=== PATIENT | male | born 1950 | race Caucasian/White ===

== ENCOUNTER → 2018-05-18 | Outpatient (CLI) | payer OTHER ==
[~2018-05-18] MED LIST: ACET1TAB12 PO; ASPI-1197 PO; AZAT50TA PO; BALS750C2 PO; METO25 PO; OLME40TA8 PO; PANT40TA25 PO; REGADENOSON 0.4 MG/5 ML PF SYG IVP SCH; SIMV40TA59 PO; TAMS-1 PO
== END | disposition home or self-care (01) ==
LOC: SHCH 08:37
PROVIDERS: ATTEND Internal Medicine Cardiovascular Disease
DX: I25.10 Atherosclerotic heart disease of native coronary artery without angina pectoris (principal)
CPT/HCPCS: 78452; 93017; 96374; A9500 ×2; J2785

== ENCOUNTER → 2018-05-24 | Outpatient (CLI) | payer OTHER ==
[~2018-05-24] MED LIST changes: -REGADENOSON 0.4 MG/5 ML PF SYG IVP SCH
== END | disposition home or self-care (01) ==
LOC: SHCH 11:26
PROVIDERS: ATTEND Internal Medicine Cardiovascular Disease
DX: R07.9 Chest pain, unspecified (principal)
CPT/HCPCS: 93306

== ENCOUNTER → 2018-07-13 | Outpatient (CLI) | payer OTHER | END | disposition home or self-care (01) | LOC: OIH 11:24 | PROVIDERS: ATTEND Family Medicine | DX: M17.11 Unilateral primary osteoarthritis, right knee (principal) | CPT/HCPCS: 73560 ==

== ENCOUNTER → 2018-10-26 | Outpatient (CLI) | payer OTHER | END | disposition home or self-care (01) | LOC: SHCH 09:45 | PROVIDERS: ATTEND Internal Medicine Cardiovascular Disease | DX: R09.89 Other specified symptoms and signs involving the circulatory and respiratory systems (principal) | CPT/HCPCS: 93880 ==

== ENCOUNTER → 2020-06-15 | Outpatient (CLI) | payer OTHER ==
[~2020-06-15] MED LIST changes: -PANT40TA25 PO; +PANT40TA54 PO
== END | disposition home or self-care (01) ==
LOC: SHCH 09:30
PROVIDERS: ATTEND Internal Medicine Cardiovascular Disease
DX: I25.5 Ischemic cardiomyopathy (principal); I10 Essential (primary) hypertension
CPT/HCPCS: 93306; 93356

== ENCOUNTER → 2020-06-20 | Outpatient (CLI) | payer OTHER | END | disposition home or self-care (01) | LOC: SHCH 10:00 | PROVIDERS: ATTEND Internal Medicine Cardiovascular Disease | DX: I65.23 Occlusion and stenosis of bilateral carotid arteries (principal) | CPT/HCPCS: 93880 ==

== ENCOUNTER → 2020-11-13 | Outpatient (CLI) | payer OTHER | END | disposition home or self-care (01) | LOC: RAH 10:45 | PROVIDERS: ATTEND Family Medicine | DX: M16.12 Unilateral primary osteoarthritis, left hip (principal); M85.88 Other specified disorders of bone density and structure, other site | CPT/HCPCS: 73502 ==

== ENCOUNTER 2021-08-12 06:49 | Observation (INO) | payer OTHER ==
[2021-08-08 10:30] LABS: BASOPHILS % (AUTO) 0.3 % (0.0-5.0); EOSINOPHILS % (AUTO) 0.9 % (0.0-8.0); HEMATOCRIT 39.8 % (42-54); LYMPHOCYTES % (AUTO) 14.8 % (21.0-51.0); MEAN CORPUSCULAR HEMOGLOBIN 31.9 pg (27.0-33.0); MEAN CORPUSCULAR HGB CONC 32.7 g/dL (32.0-36.0); MEAN CORPUSCULAR VOLUME 97.8 fL (79-99); MONOCYTES % (AUTO) 14.1 % (3.0-13.0); NEUTROPHILS % (AUTO) 69.6 % (40.0-77.0); PLATELET COUNT (AUTO) 263 K/uL (130-400); RED BLOOD CELL COUNT(AUTO) 4.07 MIL/uL (4.50-6.20); RED CELL DISTRIBUTION WIDTH 11.8 % (11.0-15.5); WHITE BLOOD COUNT (AUTO) 5.7 K/uL (4.8-10.8)
[2021-08-08 10:33] LABS: APPEARANCE,URINE Clear (CLEAR); BILIRUBIN,URINE Negative (NEGATIVE); COLOR,URINE Yellow (YELLOW); GLUCOSE, URINE (UA) Negative (NEGATIVE); KETONES,URINE Negative (NEGATIVE); LEUKOCYTE ESTERASE ,URINE Negative (NEGATIVE); NITRATE,URINE Negative (NEGATIVE); OCCULT BLOOD,URINE Negative (NEGATIVE); PROTEIN,URINE Negative (NEGATIVE); UROBILINOGEN,URINE 0.2 mg/dL (0.2-1.0)
[2021-08-08 10:37] LABS: CREATININE 1.2 mg/dL (0.5-1.5); POTASSIUM 4.5 mmol/L (3.5-5.1)
[2021-08-08 10:57] VITALS: BP 148/83
[2021-08-08 11:06] LABS: INR 0.96 (0.85-1.15); PROTHROMBIN TIME 10.5 SEC (9.6-11.6)
[~2021-08-12] VITALS: Ht 170.2 cm; Wt 79.7 kg
[2021-08-12] VITALS (29 sets, daily range): BP systolic 80–136; BP diastolic 30–71
[~2021-08-12 06:49] MED LIST changes: -ACET1TAB12 PO; +AEC81 PO; -ASPI-1197 PO; +ATOR40TA71 PO; -AZAT50TA PO; +AZAT50TA17 PO; -BALS750C2 PO; +HYDR-4064 PO; +LISI20TA24 PO; -METO25 PO; -OLME40TA8 PO; -SIMV40TA59 PO; +[UNRECOGNIZED DRUG - CODE] PO
[2021-08-12] MEDS: CEFAZOLIN SODIUM 1 GM VIAL IVP SCH ×3 (08:00→21:01)
[2021-08-12] MEDS ORDERED: LACTATED RINGERS 1000ML 1,000 ML IV ONE (08:07)
[2021-08-12] MEDS ORDERED: PROPOFOL 10 MG/ML 20ML VIAL IV ONE (09:14)
[2021-08-12] MEDS ORDERED: SUCCINYLCHOLINE 200MG/10ML SYR ONE (09:14)
[2021-08-12] MEDS ORDERED: LIDOCAINE PF 100MG/5ML (2%) SYRINGE 5ML ONE ×2 (09:14→13:48)
[2021-08-12] MEDS ORDERED: FENTANYL CITRATE PF 50 MCG/1 ML 2ML VIAL ONE (09:15)
[2021-08-12] MEDS ORDERED: ROCURONIUM 10MG/1ML SYR 10 MG/ML ML ONE ×2 (09:15→11:37)
[2021-08-12] MEDS ORDERED: ROPIVACAINE 0.5% 5MG/ML 30ML IJ ONE (09:43)
[2021-08-12] MEDS ORDERED: MIDAZOLAM HCL 1 MG/ML 2ML VIAL ONE ×2 (10:22→16:19)
[2021-08-12] MEDS ORDERED: MEPERIDINE-PF 25 MG/ML SYG ONE ×3 (10:24→14:32)
[2021-08-12] MEDS ORDERED: TRANEXAMIC ACID 1000MG/10ML ONE ×2 (10:25→14:17)
[2021-08-12] MEDS ORDERED: CEFAZOLIN SODIUM 1 GM VIAL ONE (10:25)
[2021-08-12] MEDS ORDERED: EPHEDRINE SULFATE 50 MG/ML AMPULE ONE ×2 (10:35→14:54)
[2021-08-12] MEDS ORDERED: PHENYLEPHRINE HCL 10 MG/ML 1ML VIAL IV ONE ×3 (11:28→12:54)
[2021-08-12] MEDS ORDERED: 0.9%NACL 10ML VIAL ONE (11:28)
[2021-08-12] MEDS ORDERED: CEFAZOLIN SODIUM 1 GM VIAL IRRIG ONE (11:33)
[2021-08-12] MEDS ORDERED: GLYCOPYRROLATE 1 MG/5 ML SYRINGE ONE (12:42)
[2021-08-12] MEDS ORDERED: NEOSTIGMINE 5MG/5ML SYR IV ONE (13:28)
[2021-08-12] MEDS ORDERED: DiphenhydrAMINE HCL 50 MG/ML VIAL IVP PRN (13:30)
[2021-08-12] MEDS ORDERED: FERROUS FUMARATE 324 MG TABLET PO PRN (13:30)
[2021-08-12] MEDS ORDERED: POTASSIUM CHLORIDE 10% ELIXIR 20 MEQ/15 ML UDCUP PO PRN (13:30)
[2021-08-12] MEDS: ACETAMINOPHEN 500 MG TABLET PO SCH ×2 (13:30→21:06)
[2021-08-12] MEDS ORDERED: TEMAZEPAM 15 MG CAPSULE PO PRN (13:30)
[2021-08-12] MEDS ORDERED: OXYCODONE HCL 5 MG TAB PO PRN (13:30)
[2021-08-12] MEDS ORDERED: KCL 20 MEQ ERTAB PO PRN (13:30)
[2021-08-12] MEDS ORDERED: ONDANSETRON 4MG INJ IVP PRN (13:30)
[2021-08-12] MEDS ORDERED: POTASSIUM CHLORIDE 20MEQ/100ML 100 ML IV PRN (13:30)
[2021-08-12] MEDS ORDERED: TRAMADOL HCL 50 MG TABLET PO PRN (13:30)
[2021-08-12] MEDS ORDERED: LIDOCAINE HCL-MPF 1% 2ML VIAL IV PRN (13:30)
[2021-08-12] MEDS ORDERED: CALCIUM CARB 500MG PO PRN (13:30)
[2021-08-12] MEDS: FENTANYL CITRATE PF 50 MCG/1 ML 2ML VIAL ONE ×2 (15:20→15:22)
[2021-08-12] MEDS: 0.9%NACL 1000ML 1,000 ML IV SCH ×2 (17:03→23:30)
[2021-08-12] MEDS ORDERED: HYDROMORPHONE PCA 10 MG/50 ML 50 ML IV PRN (17:30)
[2021-08-12] MEDS ORDERED: CEFAZOLIN SODIUM 1 GM VIAL IVP SCH ×2 (18:30→20:30)
[2021-08-12] MEDS: BALSALAZIDE DISODIUM 750 MG PO SCH (21:00)
[2021-08-12] MEDS: KETOROLAC 15MG/ML VIAL (15MG/ML) IV PRN (21:01)
[2021-08-12] MEDS: ATORVASTATIN 40 MG TABLET PO SCH (21:02)
[2021-08-12] MEDS: CELECOXIB 200 MG CAP PO SCH (21:02)
[2021-08-12] MEDS: TAMSULOSIN HCL 0.4 MG CAP.ER.24H PO SCH (21:02)
[2021-08-12] MEDS: PREGABALIN 25 MG CAP PO SCH (21:02)
[2021-08-12] MEDS: AZATHIOPRINE 50 MG TAB PO SCH (21:02)
[2021-08-12] MEDS: ASPIRIN 81 MG EC TAB PO SCH (21:02)
[2021-08-12] MEDS: OXYCODONE HCL 5 MG TAB PO PRN (22:52)
[2021-08-13] VITALS: BP 103/63
[2021-08-13 04:00] VITALS: BP 118/66
[2021-08-13 04:03] LABS: HEMATOCRIT 26.9 % (42-54); MEAN CORPUSCULAR HEMOGLOBIN 31.8 pg (27.0-33.0); MEAN CORPUSCULAR HGB CONC 33.5 g/dL (32.0-36.0); MEAN CORPUSCULAR VOLUME 95.1 fL (79-99); RED BLOOD CELL COUNT(AUTO) 2.83 MIL/uL (4.50-6.20); RED CELL DISTRIBUTION WIDTH 11.9 % (11.0-15.5); WHITE BLOOD COUNT (AUTO) 7.3 K/uL (4.8-10.8)
[2021-08-13 04:12] LABS: CREATININE 1.1 mg/dL (0.5-1.5); POTASSIUM 4.1 mmol/L (3.5-5.1)
[2021-08-13] MEDS ORDERED: CEFAZOLIN SODIUM 1 GM VIAL ONE (04:54)
[2021-08-13] MEDS: CEFAZOLIN SODIUM 1 GM VIAL IVP SCH (05:00)
[2021-08-13] MEDS: OXYCODONE HCL 5 MG TAB PO PRN ×2 (05:05→21:11)
[2021-08-13] MEDS: ACETAMINOPHEN 500 MG TABLET PO SCH ×3 (05:07→21:10)
[2021-08-13] MEDS ORDERED: MAGNESIUM CITRATE 296 ML SOLUTION PO SCH (06:30)
[2021-08-13] MEDS ORDERED: MAG/ALUM/SIMETH 30 ML UDCUP PO PRN (06:30)
[2021-08-13 07:10] VITALS: BP 145/80
[2021-08-13] MEDS: CELECOXIB 200 MG CAP PO SCH ×2 (08:52→21:08)
[2021-08-13] MEDS: PANTOPRAZOLE 40 MG TAB DR PO SCH (08:52)
[2021-08-13] MEDS: AZATHIOPRINE 50 MG TAB PO SCH ×2 (08:52→21:08)
[2021-08-13] MEDS: POLYETHYLENE GLYCOL 3350 17 GM POWD.PACK PO SCH (08:52)
[2021-08-13] MEDS: LISINOPRIL 20 MG TABLET PO SCH (08:53)
[2021-08-13] MEDS: ASPIRIN 81 MG EC TAB PO SCH ×3 (08:53→21:09)
[2021-08-13] MEDS: PREGABALIN 25 MG CAP PO SCH ×2 (08:53→21:08)
[2021-08-13] MEDS ORDERED: TAMSULOSIN HCL 0.4 MG CAP.ER.24H PO SCH (09:00)
[2021-08-13] MEDS: BALSALAZIDE DISODIUM 750 MG PO SCH ×3 (09:00→21:00)
[2021-08-13] MEDS: KETOROLAC 15MG/ML VIAL (15MG/ML) IV PRN (09:18)
[2021-08-13] MEDS: 0.9%NACL 1000ML 1,000 ML IV SCH (09:30)
[2021-08-13 11:15] VITALS: BP 107/69
[2021-08-13 15:05] VITALS: BP 124/72
[2021-08-13 20:05] VITALS: BP 128/64
[2021-08-13] MEDS: ATORVASTATIN 40 MG TABLET PO SCH (21:08)
[2021-08-13] MEDS: TAMSULOSIN HCL 0.4 MG CAP.ER.24H PO SCH (21:19)
[2021-08-14 00:01] VITALS: BP 118/64
[2021-08-14 04:12] VITALS: BP 130/65
[2021-08-14] MEDS: ACETAMINOPHEN 500 MG TABLET PO SCH ×2 (05:56→12:58)
[2021-08-14] MEDS: OXYCODONE HCL 5 MG TAB PO PRN ×2 (06:25→17:07)
[2021-08-14 07:10] VITALS: BP 119/55
[2021-08-14] MEDS: POLYETHYLENE GLYCOL 3350 17 GM POWD.PACK PO SCH (09:00)
[2021-08-14] MEDS: BALSALAZIDE DISODIUM 750 MG PO SCH ×2 (09:00→14:00)
[2021-08-14] MEDS: ASPIRIN 81 MG EC TAB PO SCH ×2 (09:00→10:43)
[2021-08-14] MEDS: PREGABALIN 25 MG CAP PO SCH (10:42)
[2021-08-14] MEDS: CELECOXIB 200 MG CAP PO SCH (10:42)
[2021-08-14] MEDS: PANTOPRAZOLE 40 MG TAB DR PO SCH (10:42)
[2021-08-14] MEDS: LISINOPRIL 20 MG TABLET PO SCH (10:43)
[2021-08-14] MEDS: AZATHIOPRINE 50 MG TAB PO SCH (10:43)
[2021-08-14 11:10] VITALS: BP 124/80
[2021-08-14] MEDS: KETOROLAC 15MG/ML VIAL (15MG/ML) IV PRN (12:56)
[2021-08-14 15:00] VITALS: BP 139/64
[2021-08-14] MEDS ORDERED: AEC81 PO (15:36)
[2021-08-14] MEDS ORDERED: OXYC-38 PO (15:36)
[2021-08-14 20:00] VITALS: BP 133/77
[2021-08-15] MEDS ORDERED: BISACODYL 10 MG SUPP.RECT RC PRN (13:30)
== END 2021-08-14 20:50 | disposition home health service (06) ==
LOC: DAH 06:49 → DAHIP 06:50 → 4BH 16:53
PROVIDERS: ADMIT Orthopaedic Surgery; ATTEND Orthopaedic Surgery
DX: M16.11 Unilateral primary osteoarthritis, right hip (principal); Z20.822 Contact with and (suspected) exposure to COVID-19; D62 Acute posthemorrhagic anemia; R33.9 Retention of urine, unspecified; I25.10 Atherosclerotic heart disease of native coronary artery without angina pectoris; K51.90 Ulcerative colitis, unspecified, without complications; Z79.899 Other long term (current) drug therapy; Z87.891 Personal history of nicotine dependence
CPT/HCPCS: 27130; 36415 ×2; 64447; 73503; 76942; 80048 ×2; 81003; 85025; 85027; 85610; 87088; 87635; 87641; 96374; 96375; 96376 ×2; 97039 ×4; 97116 ×4; 97161; 97530 ×2; A4215; A4221; A4222; A4223; A4649 ×5; A4663; A4930; A9272; C1776; C9803; G0378 ×53; J0330; J0690 ×5; J1885 ×3; J2001 ×2; J2175 ×3; J2250 ×2; J2370 ×3; J2704; J2710; J2795; J3010 ×2; J3490 ×5; J7120; J7500 ×3

== ENCOUNTER 2021-10-14 07:56 | Observation (INO) | payer OTHER ==
[2021-10-11 10:16] LABS: BASOPHILS % (AUTO) 0.7 % (0.0-5.0); EOSINOPHILS % (AUTO) 1.8 % (0.0-8.0); LYMPHOCYTES % (AUTO) 20.4 % (21.0-51.0); MEAN CORPUSCULAR HEMOGLOBIN 31.3 pg (27.0-33.0); MEAN CORPUSCULAR HGB CONC 31.5 g/dL (32.0-36.0); MEAN CORPUSCULAR VOLUME 99.2 fL (79-99); MONOCYTES % (AUTO) 14.2 % (3.0-13.0); NEUTROPHILS % (AUTO) 62.7 % (40.0-77.0); PLATELET COUNT (AUTO) 243 K/uL (130-400); RED BLOOD CELL COUNT(AUTO) 3.93 MIL/uL (4.50-6.20); RED CELL DISTRIBUTION WIDTH 12.6 % (11.0-15.5); WHITE BLOOD COUNT (AUTO) 4.5 K/uL (4.8-10.8)
[2021-10-11 10:17] LABS: APPEARANCE,URINE CLEAR (CLEAR); BILIRUBIN,URINE NEGATIVE (NEGATIVE); COLOR,URINE YELLOW (YELLOW); GLUCOSE, URINE (UA) NEGATIVE (NEGATIVE); KETONES,URINE NEGATIVE (NEGATIVE); LEUKOCYTE ESTERASE ,URINE NEGATIVE (NEGATIVE); NITRATE,URINE NEGATIVE (NEGATIVE); OCCULT BLOOD,URINE NEGATIVE (NEGATIVE); PROTEIN,URINE NEGATIVE (NEGATIVE); UROBILINOGEN,URINE 0.2 mg/dL (0.2-1.0)
[2021-10-11 10:25] LABS: CREATININE 1.1 mg/dL (0.5-1.5); POTASSIUM 4.7 mmol/L (3.5-5.1)
[2021-10-11 10:27] LABS: INR 0.94 (0.85-1.15); PROTHROMBIN TIME 10.3 SEC (9.6-11.6)
[2021-10-11 14:50] VITALS: BP 134/73
[~2021-10-14] VITALS: Ht 170.2 cm; Wt 80.3 kg
[2021-10-14] VITALS (20 sets, daily range): BP systolic 101–133; BP diastolic 52–74
[2021-10-14] MEDS: CEFAZOLIN SODIUM 1 GM VIAL IVP SCH ×3 (06:00→17:12)
[~2021-10-14 07:56] MED LIST changes: -HYDR-4064 PO; +OXYC-38 PO
[2021-10-14] MEDS ORDERED: LACTATED RINGERS 1000ML 1,000 ML IV ONE (08:55)
[2021-10-14] MEDS ORDERED: CEFAZOLIN SODIUM 1 GM VIAL ONE (10:12)
[2021-10-14] MEDS ORDERED: TRANEXAMIC ACID 1000MG/10ML ONE (10:13)
[2021-10-14] MEDS ORDERED: MIDAZOLAM HCL 1 MG/ML 2ML VIAL ONE (10:53)
[2021-10-14] MEDS ORDERED: ROPIVACAINE 0.5% 5MG/ML 30ML IJ ONE ×2 (10:53→11:04)
[2021-10-14] MEDS ORDERED: LIDOCAINE PF 100MG/5ML (2%) SYRINGE 5ML ONE (10:53)
[2021-10-14] MEDS ORDERED: SUCCINYLCHOLINE CHLORIDE 20 MG/ML 10 ML VIAL ONE (10:53)
[2021-10-14] MEDS ORDERED: PROPOFOL 10 MG/ML 20ML VIAL IV ONE (10:53)
[2021-10-14] MEDS ORDERED: FENTANYL CITRATE PF 50 MCG/1 ML 2ML VIAL ONE (10:53)
[2021-10-14] MEDS ORDERED: ROCURONIUM 10MG/1ML SYR 10 MG/ML ML ONE ×2 (10:54→11:36)
[2021-10-14] MEDS ORDERED: DEXAMETHASONE SOD PHOSPHATE 10MG/ML 1ML VIAL ONE (11:05)
[2021-10-14] MEDS ORDERED: EPHEDRINE SULFATE 50 MG/ML AMPULE ONE (11:13)
[2021-10-14] MEDS ORDERED: TEMAZEPAM 15 MG CAPSULE PO PRN (13:00)
[2021-10-14] MEDS: ACETAMINOPHEN 500 MG TABLET PO SCH ×2 (13:00→19:41)
[2021-10-14] MEDS ORDERED: DiphenhydrAMINE HCL 50 MG/ML VIAL IVP PRN (13:00)
[2021-10-14] MEDS ORDERED: FERROUS FUMARATE 324 MG TABLET PO PRN (13:00)
[2021-10-14] MEDS ORDERED: OXYCODONE HCL 5 MG TAB PO PRN (13:00)
[2021-10-14] MEDS ORDERED: 0.9%NACL 1000ML 1,000 ML IV SCH (13:00)
[2021-10-14] MEDS ORDERED: LIDOCAINE HCL-MPF 1% 2ML VIAL IV PRN (13:00)
[2021-10-14] MEDS ORDERED: ONDANSETRON 4MG INJ IVP PRN (13:00)
[2021-10-14] MEDS ORDERED: TRAMADOL HCL 50 MG TABLET PO PRN (13:00)
[2021-10-14] MEDS ORDERED: POTASSIUM CHLORIDE 20MEQ/100ML 100 ML IV PRN (13:00)
[2021-10-14] MEDS ORDERED: POTASSIUM CHLORIDE 10% ELIXIR 20 MEQ/15 ML UDCUP PO PRN (13:00)
[2021-10-14] MEDS ORDERED: KCL 20 MEQ ERTAB PO PRN (13:00)
[2021-10-14] MEDS ORDERED: CALCIUM CARB 500MG PO PRN (13:00)
[2021-10-14] MEDS: TRANEXAMIC ACID 1000MG/10ML ONE ×2 (13:20→13:34)
[2021-10-14] MEDS ORDERED: MEPERIDINE-PF 25 MG/ML SYG ONE (13:37)
[2021-10-14] MEDS: OXYCODONE HCL 5 MG TAB PO PRN ×2 (15:13→21:21)
[2021-10-14] MEDS ORDERED: ASPIRIN 81 MG EC TAB ONE (19:15)
[2021-10-14] MEDS ORDERED: CELECOXIB 200 MG CAP ONE (19:15)
[2021-10-14] MEDS ORDERED: PREGABALIN 25 MG CAP ONE (19:16)
[2021-10-14] MEDS ORDERED: PHENAZOPYRIDINE HCL 200 MG TABLET PO PRN (19:30)
[2021-10-14] MEDS: ASPIRIN 81 MG EC TAB PO SCH (19:40)
[2021-10-14] MEDS: CELECOXIB 200 MG CAP PO SCH (19:40)
[2021-10-14] MEDS: PREGABALIN 25 MG CAP PO SCH (19:41)
[2021-10-14] MEDS: BALSALAZIDE DISODIUM 750 MG PO SCH (19:42)
[2021-10-14] MEDS: AZATHIOPRINE 50 MG TAB PO SCH (20:51)
[2021-10-14 20:56] LABS: APPEARANCE,URINE Clear (CLEAR); BILIRUBIN,URINE Negative (NEGATIVE); COLOR,URINE Yellow (YELLOW); GLUCOSE, URINE (UA) Negative (NEGATIVE); KETONES,URINE Negative (NEGATIVE); LEUKOCYTE ESTERASE ,URINE Moderate (NEGATIVE); NITRATE,URINE Negative (NEGATIVE); OCCULT BLOOD,URINE Small (NEGATIVE); PROTEIN,URINE Negative (NEGATIVE); UROBILINOGEN,URINE 0.2 mg/dL (0.2-1.0)
[2021-10-14] MEDS ORDERED: PHENAZOPYRIDINE HCL 200 MG TABLET PO SCH (21:00)
[2021-10-14 21:11] LABS: BACTERIA,URINE Few /HPF (None Seen); SQUAMOUS EPITHELIAL CELL,UR Rare /HPF (0-2)
[2021-10-14] MEDS: KETOROLAC 15MG/ML VIAL (15MG/ML) IV PRN (22:23)
[2021-10-15] VITALS (7 sets, daily range): BP systolic 100–121; BP diastolic 60–77
[2021-10-15] MEDS: CEFAZOLIN SODIUM 1 GM VIAL IVP SCH (02:30)
[2021-10-15 03:57] LABS: HEMATOCRIT 32.1 % (42-54); MEAN CORPUSCULAR HEMOGLOBIN 30.9 pg (27.0-33.0); MEAN CORPUSCULAR HGB CONC 31.8 g/dL (32.0-36.0); MEAN CORPUSCULAR VOLUME 97.3 fL (79-99); RED BLOOD CELL COUNT(AUTO) 3.3 MIL/uL (4.50-6.20); RED CELL DISTRIBUTION WIDTH 12.5 % (11.0-15.5); WHITE BLOOD COUNT (AUTO) 7.9 K/uL (4.8-10.8)
[2021-10-15 04:09] LABS: CREATININE 1.3 mg/dL (0.5-1.5); POTASSIUM 4.3 mmol/L (3.5-5.1)
[2021-10-15] MEDS: ACETAMINOPHEN 500 MG TABLET PO SCH ×3 (05:00→20:05)
[2021-10-15] MEDS: OXYCODONE HCL 5 MG TAB PO PRN ×4 (05:01→20:40)
[2021-10-15] MEDS ORDERED: PHENAZOPYRIDINE HCL 200 MG TABLET PO PRN (09:00)
[2021-10-15] MEDS ORDERED: TAMSULOSIN HCL 0.4 MG CAP.ER.24H PO SCH (09:00)
[2021-10-15] MEDS: POLYETHYLENE GLYCOL 3350 17 GM POWD.PACK PO SCH (09:17)
[2021-10-15] MEDS: TAMSULOSIN HCL 0.4 MG CAP.ER.24H PO SCH (09:17)
[2021-10-15] MEDS: ASPIRIN 81 MG EC TAB PO SCH ×2 (09:18→19:42)
[2021-10-15] MEDS: AZATHIOPRINE 50 MG TAB PO SCH ×2 (09:18→19:42)
[2021-10-15] MEDS: ATORVASTATIN 40 MG TABLET PO SCH (09:18)
[2021-10-15] MEDS: LISINOPRIL 20 MG TABLET PO SCH (09:18)
[2021-10-15] MEDS: BALSALAZIDE DISODIUM 750 MG PO SCH ×3 (09:18→19:43)
[2021-10-15] MEDS: PREGABALIN 25 MG CAP PO SCH ×2 (09:18→20:05)
[2021-10-15] MEDS: CELECOXIB 200 MG CAP PO SCH ×2 (09:18→19:42)
[2021-10-15] MEDS: PANTOPRAZOLE 40 MG TAB DR PO SCH (09:18)
[2021-10-15] MEDS: KETOROLAC 15MG/ML VIAL (15MG/ML) IV PRN ×3 (11:01→23:42)
[2021-10-16] MEDS: OXYCODONE HCL 5 MG TAB PO PRN (03:50)
[2021-10-16 04:00] VITALS: BP 130/72
[2021-10-16] MEDS: ACETAMINOPHEN 500 MG TABLET PO SCH ×2 (04:59→13:18)
[2021-10-16 07:00] VITALS: BP 119/69
[2021-10-16] MEDS: AZATHIOPRINE 50 MG TAB PO SCH (08:46)
[2021-10-16] MEDS: PREGABALIN 25 MG CAP PO SCH (08:46)
[2021-10-16] MEDS: ATORVASTATIN 40 MG TABLET PO SCH (08:46)
[2021-10-16] MEDS: ASPIRIN 81 MG EC TAB PO SCH (08:46)
[2021-10-16] MEDS: CELECOXIB 200 MG CAP PO SCH (08:46)
[2021-10-16] MEDS: LISINOPRIL 20 MG TABLET PO SCH (08:46)
[2021-10-16] MEDS: TAMSULOSIN HCL 0.4 MG CAP.ER.24H PO SCH (08:46)
[2021-10-16] MEDS: PANTOPRAZOLE 40 MG TAB DR PO SCH (08:46)
[2021-10-16] MEDS: POLYETHYLENE GLYCOL 3350 17 GM POWD.PACK PO SCH (08:47)
[2021-10-16] MEDS: KETOROLAC 15MG/ML VIAL (15MG/ML) IV PRN (08:48)
[2021-10-16] MEDS: BALSALAZIDE DISODIUM 750 MG PO SCH ×2 (08:52→13:18)
[2021-10-16 10:45] VITALS: BP 113/68
[2021-10-16 15:00] VITALS: BP 115/62
[2021-10-16] MEDS ORDERED: OXYC-38 PO ×2 (15:45→16:18)
[2021-10-16] MEDS ORDERED: AEC81 PO ×2 (15:45→16:18)
[2021-10-17] MEDS ORDERED: BISACODYL 10 MG SUPP.RECT RC PRN (13:00)
== END 2021-10-16 18:35 | disposition home health service (06) ==
LOC: DAH 07:56 → DAHIP 07:57 → DAH 07:57 → 4AH 14:03
PROVIDERS: ADMIT Orthopaedic Surgery; ATTEND Orthopaedic Surgery
DX: M17.11 Unilateral primary osteoarthritis, right knee (principal); Z20.822 Contact with and (suspected) exposure to COVID-19; M25.561 Pain in right knee; G89.29 Other chronic pain; I12.9 Hypertensive chronic kidney disease with stage 1 through stage 4 chronic kidney disease, or unspecified chronic kidney disease; N18.9 Chronic kidney disease, unspecified; E78.5 Hyperlipidemia, unspecified; D64.9 Anemia, unspecified; I25.10 Atherosclerotic heart disease of native coronary artery without angina pectoris; K51.90 Ulcerative colitis, unspecified, without complications; M51.36 Other intervertebral disc degeneration, lumbar region; Z87.891 Personal history of nicotine dependence; Z79.899 Other long term (current) drug therapy
CPT/HCPCS: 27447; 36415 ×2; 80048 ×2; 81001; 81003; 85025; 85027; 85610; 87088; 87635; 87641; 96374; 96375; 96376 ×2; 97039 ×4; 97116 ×4; 97161; 97530 ×5; A4215; A4221; A4222; A4223; A4600; A4649 ×5; A4663; A4930; A9272; C1776; C9803; G0378 ×50; J0330; J0690 ×4; J1100; J1885 ×5; J2001; J2175; J2250; J2704; J2795 ×2; J3010; J3490 ×3; J7120 ×2; J7500 ×3

== ENCOUNTER → 2024-04-01 | Outpatient (CLI) | payer OTHER ==
[~2024-04-01] MED LIST changes: +FERS325 PO
== END | disposition home or self-care (01) ==
LOC: SHCH 09:16
PROVIDERS: ATTEND Internal Medicine Cardiovascular Disease
DX: I47.10 Supraventricular tachycardia, unspecified (principal); E78.5 Hyperlipidemia, unspecified; I65.23 Occlusion and stenosis of bilateral carotid arteries; I08.3 Combined rheumatic disorders of mitral, aortic and tricuspid valves; Z95.1 Presence of aortocoronary bypass graft
CPT/HCPCS: 93306; 93880

== ENCOUNTER → 2024-08-31 | Outpatient (CLI) | payer OTHER ==
[~2024-08-31] MED LIST changes: +IOHEXOL 350 MG/ML 100ML INFUS..BTL IV ONE
--- NOTE | 2024-08-31 15:37 | HMCIMG ---
CT CARDIAC ANGIO W/CONT. CCTA HISTORY: Ischemic cardiomyopathy COMPARISON: None TECHNIQUE: Multiple sequential axial images of the chest were obtained along with the CT angiogram of the chest study. Patient was given 100 cc of Omnipaque through intravenous route. FINDINGS: There is no evidence of pulmonary nodule or parenchymal disease. No pleural effusion or pericardial effusion is seen. There is no evidence of pneumothorax. There are normal size mediastinal and hilar lymph nodes. The heart is not enlarged. Degenerative changes of the thoracolumbar spine are present. IMPRESSION: 1. No evidence of pulmonary nodule or effusion is seen. Please see CT angiogram report of coronary arteries.
== END | disposition home or self-care (01) ==
LOC: RAH 09:09
PROVIDERS: ATTEND Internal Medicine Cardiovascular Disease
DX: I25.5 Ischemic cardiomyopathy (principal); M47.815 Spondylosis without myelopathy or radiculopathy, thoracolumbar region
CPT/HCPCS: 75574; Q9967

== ENCOUNTER 2024-09-14 15:29 | Emergency (ER) | payer OTHER ==
[~2024-09-14] VITALS: Ht 170.2 cm; Wt 81.6 kg
[~2024-09-14 15:29] MED LIST changes: -IOHEXOL 350 MG/ML 100ML INFUS..BTL IV ONE
[2024-09-14 17:29] LABS: BASOPHILS # (AUTO) 0.03 K/uL (0.00-0.20); BASOPHILS % (AUTO) 0.7 % (0.0-5.0); EOSINOPHILS # (AUTO) 0.11 K/uL (0.00-0.70); EOSINOPHILS % (AUTO) 2.6 % (0.0-8.0); HEMATOCRIT 38.7 % (42-54); IMMATURE GRANULOCYTE ABSOLUTE 0.01 K/uL (0-1); LYMPHOCYTES # (AUTO) 0.8 K/uL (1.0-4.8); LYMPHOCYTES % (AUTO) 19.2 % (21.0-51.0); MEAN CORPUSCULAR HEMOGLOBIN 33.6 pg (27.0-33.0); MEAN CORPUSCULAR HGB CONC 32.8 g/dL (32.0-36.0); MEAN CORPUSCULAR VOLUME 102.4 fL (79-99); MONOCYTES # (AUTO) 0.6 K/uL (0.1-1.0); MONOCYTES % (AUTO) 14.5 % (3.0-13.0); NEUTROPHILS # (AUTO) 2.6 K/uL (1.8-7.7); NEUTROPHILS % (AUTO) 62.8 % (40.0-77.0); PLATELET COUNT (AUTO) 224 K/uL (130-400); RED BLOOD CELL COUNT(AUTO) 3.78 MIL/uL (4.50-6.20); RED CELL DISTRIBUTION WIDTH 11.9 % (11.0-15.5); WHITE BLOOD COUNT (AUTO) 4.2 K/uL (4.8-10.8)
[2024-09-14 17:43] LABS: INR <= 0.93 (0.85-1.15); PROTHROMBIN TIME 10.3 SEC (9.6-11.6)
[2024-09-14 17:44] LABS: PARTIAL THROMBOPLASTIN TIME 24.8 SEC (26.3-35.5)
[2024-09-14 18:09] LABS: CREATININE 1.1 mg/dL (0.5-1.3); POTASSIUM 4.5 mmol/L (3.5-5.1)
--- NOTE | 2024-09-14 18:11 | HMCIMG ---
ULTRASOUND VENOUS DOPPLER RIGHT UPPER EXTREMITY INDICATION: Swelling. TECHNIQUE: Routine grayscale and color and spectral Doppler ultrasound of the right upper extremity veins performed in real-time, and images subsequently made available for review. COMPARISON: None FINDINGS: Normal compression, vascular antegrade flow, respiratory variation and spectral waveforms identified within the right internal jugular vein, subclavian vein, axillary vein, brachial vein, cephalic vein, and basilic vein. No evidence for an intraluminal thrombus. No soft tissue abnormalities demonstrated. IMPRESSION: No evidence for right upper extremity venous thrombosis.
[2024-09-14 18:28] VITALS: BP 165/84; PULSE 61; RESP 20; TEMP 97.9; O2SAT 98
--- NOTE | 2024-09-14 18:46 | ERN ---
General Chief Complaint: Shoulder Injury/Pain Stated Complaint: RIGHT ARM INJURY History of Present Illness Initial Comments 74-year-old male who bruising to the right arm. Patient reports he has had some shoulder problems lately. He had an injection about a week ago. He reports that yesterday he moved his arm and he noticed some bruising today. The bruising appears to be increasing from the shoulder down to the elbow. He does not have any pain at this area. He does not take a blood thinner. He has full range of movement. No systemic illness. Allergies: Coded Allergies: No Known Allergies (Unverified Allergy, Unknown, 12/01/14) Home Meds Active Scripts Oxycodone HCl/Acetaminophen (Percocet 5-325 mg Tablet) 1 Each Tablet, 1-2 EACH PO Q6HPRN PRN for ACUTE POST-OP PAIN (G89.18), #56 TAB 0 Refills Prov:HAYDEN STREET MD 12/13/21 Ferrous Sulfate (Ferrous Sulfate) 325 Mg Ectab, 325 MG PO DAILY for POST-OP ANEMIA, #30 TAB.EC 0 Refills Prov:HAYDEN STREET MD 12/13/21 Aspirin (ASPIRIN 81 MG ECTAB) 81 Mg Ectab, 81 MG PO BID for DVT PROPHYLAXIS, #40 TAB.EC Prov:HAYDEN STREET MD 12/13/21 Reported Medications Oxycodone HCl/Acetaminophen (Percocet 5-325 mg Tablet) 1 Each Tablet, 1-2 TAB PO Q8H PRN for PAIN LEVEL 4 TO 6, TAB 12/10/21 Atorvastatin Calcium (Atorvastatin Calcium) 40 Mg Tablet, 40 MG PO AM, TAB 10/11/21 Tamsulosin HCl (Flomax) 0.4 Mg Cap.er.24h, 0.4 MG PO AM, CAPSULE. 10/11/21 Pantoprazole Sodium (Pantoprazole Sodium) 40 Mg Tablet.dr, 40 MG PO AM, TAB 08/08/21 Azathioprine (Imuran) 50 Mg Tablet, 100 MG PO AM, TAB 08/08/21 Balsalazide Disodium (Balsalazide Disodium) 750 Mg Capsule, 750 MG PO TID, CAP 08/08/21 Lisinopril (Lisinopril) 20 Mg Tablet, 20 MG PO AM, TAB 08/08/21 Past Medical History Past Medical History: Hypertension Past Surgical History: Other ROS Dictation CONSTITUTIONAL: No chills, no fever, no weakness, no diaphoresis, no malaise. HEAD/FACE: No signs of trauma. EENT: No eye pain, no blurred vision, no tearing, no double vision, no ear pain, no ear discharge, no nose pain, no nasal congestion, no throat pain, no throat swelling, no mouth pain. RESPIRATORY: No cough, no orthopnea, no SOB, no stridor, no wheezing. CARDIOVASCULAR: No chest pain, no edema, no palpitations, no syncope. GASTROINTESTINAL/ABDOMINAL: No abdominal pain, no constipation, no diarrhea, no nausea, no vomiting. GENITOURINARY: No abnormal discharge, no dysuria, no frequent urination, no hematuria. No complaints of pain in the genitals. MUSCULOSKELETAL: No back pain, no gout, no joint pain, no joint swelling, no muscle pain, no muscle stiffness, no neck pain. INTEGUMENTARY: No change in color, no change in hair/nails, no dryness, no lesion, no lumps, no rash. NEUROLOGICAL/PSYCH: No anxiety, not depressed, no emotional problem, no headache, no numbness, no pre-existing deficit, no history of seizures, no tremors, no weakness. HEMATOLOGIC/LYMPHATIC: Not anemic, no history of blood clots, no apparent bleeding, no bruising, glands not swollen. All Systems Negative, Except as Noted. Physical Exam Physical Exam Dictation VITAL SIGNS: Reviewed. GENERAL APPEARANCE: Alert, oriented x3, no acute distress HEAD AND FACE: Non-traumatic. EYES: PERRL, pink conjunctivas, eyelid no trauma, anterior chamber clear. EARS: Pinnas intact and no signs of trauma or erythema. Ear canals clear and no discharge. TMs no erythema. NOSE: No discharge, no bleeding. OROPHARYNX: Mouth normal, teeth no caries, tongue pink. Pharynx clear, no erythema. Tonsils no exudates, no abscesses noted. Mucous membrane moist. NECK: Supple, non-tender, no thyromegaly, no masses, no JVD, no bruits. BREAST: Deferred. CHEST: No tenderness, no crepitus, no paradoxical movement, no retractions. LUNGS: Clear, well-ventilated, symmetric, no rales, no wheezing, no rhonchi, no stridor, good breath sounds bilaterally. HEART: Regular rate, regular rhythm, no murmur, no gallops. VASCULAR: No peripheral edema. ABDOMEN: Soft, positive bowel sounds, nondistended, no guarding, nontender, no rebound, no masses no hepatomegaly, no splenomegaly, no Engle's sign, no hernias. RECTAL: Deferred. GENITAL: Deferred. NEUROLOGICAL: Normal speech, gross motor function intact, gross sensory function intact. MUSCULOSKELETAL: Neck nontender, full range of motion, back nontender, full range of motion. Right arm has some bruising that is nontender from the down to the elbow EXTREMITIES: Nontender, full range of motion. SKIN: Color pink, dry, no turgor, no rash, no lacerations, no abrasions, no contusions. LYMPHATICS: Deferred. Results Laboratory and Microbiology Lab and Micro Result Laboratory Tests Test 09/14/24 17:08 White Blood Count 4.2 K/uL (4.8-10.8) L Red Blood Count 3.78 MIL/uL (4.50-6.20) L Hemoglobin 12.7 g/dL (14.0-18.0) L Hematocrit 38.7 % (42-54) L Mean Corpuscular Volume 102.4 fL (79-99) H Mean Corpuscular Hemoglobin 33.6 pg (27.0-33.0) H Mean Corpuscular Hemoglobin Concent 32.8 g/dL (32.0-36.0) Red Cell Distribution Width 11.9 % (11.0-15.5) Platelet Count 224 K/uL (130-400) Mean Platelet Volume 10.3 fL (7.5-10.5) Immature Granulocyte % (Auto) 0.2 % (0-1) Neutrophils (%) (Auto) 62.8 % (40.0-77.0) Lymphocytes (%) (Auto) 19.2 % (21.0-51.0) L Monocytes (%) (Auto) 14.5 % (3.0-13.0) H Eosinophils (%) (Auto) 2.6 % (0.0-8.0) Basophils (%) (Auto) 0.7 % (0.0-5.0) Neutrophils # (Auto) 2.6 K/uL (1.8-7.7) Lymphocytes # (Auto) 0.8 K/uL (1.0-4.8) L Monocytes # (Auto) 0.6 K/uL (0.1-1.0) Eosinophils # (Auto) 0.11 K/uL (0.00-0.70) Basophils # (Auto) 0.03 K/uL (0.00-0.20) Absolute Immature Granulocyte (auto 0.01 K/uL (0-1) Nucleated Red Blood Cells 0.0 % (0.0-0.19) Prothrombin Time 10.3 SEC (9.6-11.6) Prothromb Time International Ratio <= 0.93 (0.85-1.15) Activated Partial Thromboplast Time 24.8 SEC (26.3-35.5) L Sodium Level 141 mmol/L (136-145) Potassium Level 4.5 mmol/L (3.5-5.1) Chloride Level 103 mmol/L (101-111) Carbon Dioxide Level 32 mmol/L (21-32) Blood Urea Nitrogen 16 mg/dL (7-18) Creatinine 1.1 mg/dL (0.5-1.3) Glomerular Filtration Rate Calc 71 mL/min (>90) Random Glucose 97 mg/dL (70-105) Total Calcium 8.9 mg/dL (8.5-10.1) MDM CC: Right shoulder arm bruising, not painful Historian: Patient Comorbidities: Hypertension Limitations by social determinants of health: None Differential diagnosis: DVT, bruising, injury, other. Vital signs are stable. Labs (independently ordered and interpreted by me): Mild leukopenia 4.2, right shift, no bands. macrocytic anemia hemoglobin 12.7. Platelets are normal. Coags are normal. Metabolic panel normal. DVT study (independently interpreted by me ): No evidence of DVT Symptoms are consistent with a hematoma, no signs of DVT, no signs of any life- threatening or limb threats. We will DC. ED Course Orders Procedure Category Date Status Time Cbc With Differential LAB 09/14/24 Complete 15:47 Basic Metabolic Panel LAB 09/14/24 Complete 15:47 Prothrombin Time With LAB 09/14/24 Complete INR 15:47 Partial LAB 09/14/24 Complete Thromboplastin Time 15:47 Us Venous Doppler US 09/14/24 Resulted Unilateral 15:47 Vital Signs Date Time Temp Pulse Resp B/P (MAP) Pulse Ox O2 Delivery O2 Flow Rate FiO2 09/14/24 18:28 97.9 61 20 165/84 98 Room Air* 0 21 09/14/24 15:41 97.9 68 20 165/84 99 Room Air DX & DISP Disposition: Discharge Departure Impression: Primary Impression: Hematoma of right upper extremity Condition: Stable Additional Instructions: Your symptoms are consistent with a hematoma/bruising. The ultrasound shows no signs of a DVT or active bleeding. Your blood work (CBC, coagulopathy studies, has a metabolic panel) is unremarkable. The bruising should go away on its own. Please follow up with the primary doctor if you have any concerns. Referrals: JIMMIE CIFUENTES MD (PCP) CRISTIANO NUR DO Sep 14, 2024 18:46
== END 2024-09-14 19:28 | disposition home or self-care (01) ==
LOC: EDH 15:29
DX: S40.021A Contusion of right upper arm, initial encounter (principal); I10 Essential (primary) hypertension; Z79.899 Other long term (current) drug therapy; M79.601 Pain in right arm; X58.XXXA Exposure to other specified factors, initial encounter; Y93.89 Activity, other specified; Y92.89 Other specified places as the place of occurrence of the external cause; Y99.8 Other external cause status
CPT/HCPCS: 36415; 80048; 85025; 85610; 85730; 93971; 99284

== ENCOUNTER 2024-11-21 05:59 | Observation (INO) | payer OTHER ==
[2024-11-18 09:05] LABS: BASOPHILS # (AUTO) 0.01 K/uL (0.00-0.20); BASOPHILS % (AUTO) 0.3 % (0.0-5.0); EOSINOPHILS # (AUTO) 0.13 K/uL (0.00-0.70); EOSINOPHILS % (AUTO) 3.5 % (0.0-8.0); HEMATOCRIT 38.4 % (42-54); LYMPHOCYTES # (AUTO) 0.7 K/uL (1.0-4.8); LYMPHOCYTES % (AUTO) 18.2 % (21.0-51.0); MEAN CORPUSCULAR HEMOGLOBIN 34.3 pg (27.0-33.0); MEAN CORPUSCULAR HGB CONC 33.3 g/dL (32.0-36.0); MEAN CORPUSCULAR VOLUME 102.9 fL (79-99); MONOCYTES # (AUTO) 0.5 K/uL (0.1-1.0); MONOCYTES % (AUTO) 12.7 % (3.0-13.0); NEUTROPHILS # (AUTO) 2.4 K/uL (1.8-7.7); NEUTROPHILS % (AUTO) 65.3 % (40.0-77.0); PLATELET COUNT (AUTO) 216 K/uL (130-400); RED BLOOD CELL COUNT(AUTO) 3.73 MIL/uL (4.50-6.20); RED CELL DISTRIBUTION WIDTH 12.5 % (11.0-15.5); WHITE BLOOD COUNT (AUTO) 3.7 K/uL (4.8-10.8)
[2024-11-18 09:12] LABS: CREATININE 1.1 mg/dL (0.5-1.3); POTASSIUM 4.3 mmol/L (3.5-5.1)
[2024-11-18 09:16] LABS: APPEARANCE,URINE CLEAR (CLEAR); BILIRUBIN,URINE NEGATIVE (NEGATIVE); COLOR,URINE YELLOW (YELLOW); GLUCOSE, URINE (UA) NEGATIVE (NEGATIVE); KETONES,URINE NEGATIVE (NEGATIVE); LEUKOCYTE ESTERASE ,URINE NEGATIVE Leu/uL (NEGATIVE); NITRATE,URINE NEGATIVE (NEGATIVE); OCCULT BLOOD,URINE NEGATIVE (NEGATIVE); PH,URINE 5.5 (5.0-8.0); PROTEIN,URINE 20 mg/dL (NEGATIVE); UROBILINOGEN,URINE 0.2 mg/dL (0.2-1.0)
[2024-11-18 09:16] LABS: PROTHROMBIN TIME 10.6 SEC (9.6-11.6)
[2024-11-18 09:17] LABS: PARTIAL THROMBOPLASTIN TIME 25.1 SEC (26.3-35.5)
[2024-11-18 09:22] LABS: ADD UA MICROSCOPIC YES
[2024-11-18 09:33] LABS: B-TYPE NATRIURETIC PEPTIDE 71 pg/mL (0-100)
[2024-11-18 09:35] LABS: MUCUS,URINE RARE LPF (None Seen); SQUAMOUS EPITHELIAL CELL,UR RARE /HPF (0-2)
[2024-11-18 09:48] VITALS: BP 170/90; PULSE 64; RESP 16; TEMP 98.2
--- NOTE | 2024-11-18 10:11 | EKG ---
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
--- NOTE | 2024-11-18 12:01 | HMCIMG ---
CHEST 1VW HISTORY: Preop COMPARISON: 03/08/2018 FINDINGS: A frontal projection of the chest was obtained. No acute pulmonary infiltrates is seen. The heart is normal in size. Sternotomy changes are seen. Degenerative changes are seen. Aortic calcifications are seen IMPRESSION: 1. No acute pulmonary infiltrate is seen.
[2024-11-21] VITALS (16 sets, daily range): BP systolic 119–149; BP diastolic 52–87; PULSE 48–116; RESP 14–18; TEMP 97.3–98.8; O2SAT 97
[~2024-11-21] VITALS: Ht 170.2 cm; Wt 77.1 kg
[~2024-11-21 05:59] MED LIST changes: +ALEN70TA80 PO; -FERS325 PO; +LISI10TA24 PO; -OXYC-38 PO; +OXYC10TA48 PO; -TAMS-1 PO; +TAMS-55 PO; +VITAMIN D3 PO
[2024-11-21] MEDS: 0.9%NACL 1000ML 1,000 ML IV SCH ×2 (06:50→17:41)
[2024-11-21] MEDS ORDERED: SODIUM BICARB 50MEQ 50ML VIAL 50 ML ONE (07:05)
[2024-11-21] MEDS ORDERED: LIDOCAINE HCL 400MG/20ML VIAL ONE (07:05)
[2024-11-21] MEDS ORDERED: HEParin-NS 1,000 UNIT/500 ML 1,000 ML IV ONE (07:06)
[2024-11-21] MEDS ORDERED: HEParin 10,000 UNIT/10ML (1,000 UNIT/ML) VIAL ONE (07:06)
[2024-11-21] MEDS ORDERED: IOHEXOL 350 MG/ML 100ML INFUS..BTL IV ONE (07:06)
[2024-11-21] MEDS ORDERED: NITROGLYCERIN 50MG VIAL ONE (07:07)
[2024-11-21] MEDS ORDERED: FENTanyl CITRate PF 50 MCG/1 ML 2ML VIAL ONE (07:46)
[2024-11-21] MEDS ORDERED: MIDAZOLAM HCL 1 MG/ML 2ML VIAL ONE ×4 (07:47→08:16)
[2024-11-21] MEDS ORDERED: IOHEXOL-350 50ML VIAL IV ONE (07:52)
[2024-11-21] MEDS ORDERED: metoPROLOL tartRATE 1 MG/ML 5ML VIAL IV ONE (08:06)
[2024-11-21] MEDS ORDERED: ondanSETRON 4MG INJ IVP PRN (09:00)
--- NOTE | 2024-11-21 10:23 | PR ---
PROCEDURES: * Selective right and left coronary arteriogram. * Saphenous vein graft angiogram. * Conscious sedation for 60 minutes. INDICATIONS: * Severe coronary artery disease. * Recurrent angina. * Abnormal coronary CT angiography. COMPLICATIONS: Right groin hematoma, necessitating abandoning the completion of the procedure and the intervention. TOTAL CONTRAST: Approximately 80 mL. DESCRIPTION OF PROCEDURE: The patient was taken to the cardiac catheterization lab after the appropriate operative consents were signed. He was prepped and draped in the usual fashion. After conscious sedation was administered, the right common femoral artery region was infiltrated with 2% Xylocaine without epinephrine. It is important to note that this patient had severe musculoskeletal disorders that have resulted in severe pain and inability to lie flat for an extended period of time. Moreover, he had significant pain in the right groin prior to initiating the procedure, however, the artery was palpable as an accessible in the area of access. The conscious sedation was administered first and then 2% Xylocaine without epinephrine we utilized without difficulty. The right common femoral artery was then cannulated with an anterior wall stick. The vessel was cannulated and a wire was advanced and a 6-Egyptian sheath was advanced in retrograde fashion by modified Seldinger technique. An FL4 6-Egyptian catheter was advanced and selectively engaged in the ostium of the left main. Imaging was obtained in multiplane. The left main was a moderately sized vessel that was calcified, however, did not have any significant stenotic lesions. It bifurcated into LAD, and a circumflex. The circumflex coronary artery was a moderately sized vessel that gave rise to several marginal branches and ongoing circ. The proximal area of the circumflex had a calcified 80% hazy-looking lesion prior to the takeoff of the first obtuse marginal. The first obtuse marginal was a branching vessel. The inferior branch of which was small and the superior branch was more sizable vessel had an 80% stenotic lesion with evidence of competitive flow distally from a vein graft. The ongoing circ consisted of several marginal branches that were clearly compromised by the critical proximal lesion. The LAD was a moderately sized vessel in the proximal portion. It gave rise to septal perforators and diagonals, but was occluded 100% after a tiny first diagonal. The distal LAD was not visualized by [place] injections. At this point, the catheter was withdrawn and FR4 6-Egyptian catheter was advanced, selectively engaged in the ostium of the right coronary artery. This was a calcified moderately large vessel that was noted to have a proximal 99% lesion and a mid 99% lesion. It gave rise to an acute marginal branch, which had competitive flow and it gave rise to tiny PDA and a branching PLVB, which also had competitive flow. The catheter was then engaged in the saphenous vein graft to the RCA. This was sizable graft that supplied the posterior left ventricular branch, which was a branching vessel, distal to the anastomosis. Proximal anastomosis, there was an 80% stenotic lesion. The PDA was tiny. The catheter was then engaged in the saphenous vein graft to the acute margin, which was a small graft, however, was patent, supplying the acute marginal branch, which was a sizable vessel. The catheter was engaged in the saphenous vein graft to the OM1, which was a large vessel being supplied with good flow distally. During the attempts at RANGEL cannulation, I noted that the right common femoral artery region with swelling significantly with increasing level. Had an assistant corporation counsel applied pressure on the vessel because of the expanding hematoma. Given that, I abandoned any attempt at cannulating the RANGEL, which was documented to be patent by coronary CT angiography, however, I elected not to intervene in the circumflex, which was the intended approach after the imaging was reviewed. However, because of the hematoma and the fact that the patient will require significant doses of heparin and dual antiplatelet therapy, I elected to stop the procedure at this point. I performed angiography of the right common femoral artery, which documented a leak at the site of catheter entry. Given that, we utilized a Perclose and Angio-Seal with good hemostasis. Manual pressure was applied for 30 minutes after the Perclose and Angio-Seal was deployed with no additional hematoma. The distal pulses were intact. At this point, the procedure was completed. The patient tolerated well and left the cardiac catheterization lab in stable condition. FINAL IMPRESSION: * Severe [place] 3-vessel coronary artery disease. * Patent saphenous vein graft to OM1, saphenous vein graft to the PLVB, saphenous vein graft to the acute marginal branch of the RCA. * Patent RANGEL by CT angiography. PLAN: Continue to optimize medical management. I will consider intervention at a different setting, likely with anesthesia because of the patient's significant symptoms of musculoskeletal disease. TID: [id number] RECEIPT: [id number]
--- NOTE | 2024-11-21 12:45 | NUR ---
PT CALLED GAS MANAGER LIGHT STATING HE IS HAVING CHEST PAIN.
--- NOTE | 2024-11-21 12:53 | NUR ---
WENT INTO SEE PT AND ASKED HIM WHEN DID CHEST PAIN START HE STATED "WHILE LEAVING MANAGER TRUST" BUT I DIDNT THINK ANYTHING OF IT PT ALSO RATED PAIN A 7/10 ASKING IF HE CAN TAKE HIS OXYCODONE. I DID TELL HIM I DID FEEL UNCOMFORTABLE GIVING HIM STRONG PAIN MEDICATIONS D/T RECEIVING 8MG VERSED 125MCG FENTANYL
--- NOTE | 2024-11-21 12:53 | EKG ---
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
--- NOTE | 2024-11-21 12:55 | NUR ---
DR. LIU NOTIFIED OF PT HAVING CHEST PAIN SINCE LEAVING MEDICAL ADMINISTRATIVE TECHNICIAN ORDERS TO ADMIT PT AND TO DRAW CARDIAC PANAL.
--- NOTE | 2024-11-21 13:45 | NUR ---
HOSPITALIST CALLED AT THIS TIME
--- NOTE | 2024-11-21 13:56 | NUR ---
REPORT GIVEN TO JUAN JOSEPH 2ND FLOOR AND TO TICO CELIS MEASURING MACHINE TENDER FOR ADMISSION.
--- NOTE | 2024-11-21 14:12 | HP ---
[facility] PH[facility] Date of Service: Nov 21, 2024 Time of Service: 13:58 HISTORY OF PRESENT ILLNESS: [ ] Admission date: 11/21/24 PCP: Rob Vnace MD Job Cost Estimator: DR Sujey Guerra Mr. Villalba is a 74-year-old male with a significant past medical history for CAD status post CABG x4 vessel disease 2015, stage II diastolic dysfunction EF of 40-45% on echo in March 2024. hypertension, hyperlipidemia, chronic lumbo sacral disease, osteoarthritis, BPH and osteoporosis underwent outpatient left heart catheterization with today post procedure patient started to complained of chest pain. First set of troponin was negative.DR Liu wants patient to be admitted under hospitalist for observation. Patient was seen in room 225patient is fully awake alert oriented x3. patient denies chest pain, palpitation, dizziness feeling faint. Right groin with dressing dry and intact no hematoma denies tingling numbness to right leg pulses present. Patient reports having back pain knee pain patient on oxycodone 10 mg t.i.d. as needed. We will start his home medications. REVIEW OF SYSTEMS a 14 ROS was obtained all relevant positives documented otherwise ROS negative PAST MEDICAL HISTORY: refer to HPI PAST SURGICAL HISTORY: [ ] Left total hip arthroplasty 11/29 Zenker diverticulum s/lp surgical resection, Right knee open medial and lateral meniscectomies 1971 appendectomy: 2011 L4 kyphoplasty 03/2021 Decompression and fusion L 3,4,5,05/01 PAST SOCIAL HISTORY: [ ] Denies smoking tobacco products and alcohol use FAMILY HISTORY: [ ] Heart disease: father/mother Coded Allergies: No Known Allergies (Unverified Allergy, Unknown, 12/01/14) PHYSICAL EXAM GENERAL APPEARANCE: The patient is awake, alert, and oriented, in no acute cardiopulmonary distress. NEUROLOGICAL: Cranial nerves II-XII grossly intact. Motor is 5/5 in bilateral upper and lower extremities proximal to distal. No sensory deficits. HEENT: Face is symmetric. Pupils are equal and reactive. Extraocular movements are intact. NECK: Supple. No JVD. No thyromegaly. No submental, submandibular, pre- /postauricular, occipital or supraclavicular lymphadenopathy. CHEST: Normal chest expansion. No Telemetry. LUNGS: Absence of any rales, rhonchi or any wheezing. CARDIOVASCULAR: Regular. S1 and S2 normal. No appreciable rubs, murmurs or gallops. ABDOMEN: Soft, nontender, and nondistended. There is no rebound, voluntary guarding, or rigidity. : Deferred. No Patel. EXTREMITIES: Non-edematous and not cyanotic. No clubbing. Good capillary refill. SKIN: No skin breakdown. right groin with dressing: dry clean intact no Hematoma noted Vital Sign (Last 24 Hours) 11/21/24 11/21/24 10:40 13:10 Temp 97.5 Pulse 65 Resp 15 B/P (MAP) 131/69 Pulse Ox 96 O2 Delivery Room Air FiO2 21 LABS: Laboratory: Test 11/21/24 13:05 Range/Units Total Creatine Kinase 81 # 21-232 U/L Troponin I High Sensitivity 12.7 4-75 ng/L Current Medications Medications (Trade) Dose Ordered Sig/Pratibha Route PRN Reason Start Time Stop Time Status Last Admin Dose Admin Morphine Sulfate (morPHINE 4MG SYG) 4 mg Q2HPRN PRN IM MODERATE PAIN (4-6) 11/21/24 09:00 11/28/24 08:59 Ondansetron HCl (zoFRAN 4MG INJ) 4 mg Q6H PRN IVP NAUSEA/VOMITING 11/21/24 09:00 12/21/24 08:59 Sodium Chloride 1,000 ml @ 0 mls/hr Q0M IV 11/21/24 06:30 12/21/24 06:29 11/21/24 06:50 30 MLS/HR Sodium Chloride 1,000 ml @ 150 mls/hr Q6H40M IV 11/21/24 09:00 11/21/24 14:59 DIAGNOSTICS / RADIOLOGY: [ ] PATIENT NAME: LEYLA VILLALBA JR : 1950, SEX: M ADMIT DT: DISCHARGE DT: ATTENDING: Bhavesh LIU II, MD DICTATED: Bhavesh LIU II, MD REPORT: PROCEDURE REPORT PROCEDURES: * Selective right and left coronary arteriogram. * Saphenous vein graft angiogram. * Conscious sedation for 60 minutes. INDICATIONS: * Severe coronary artery disease. * Recurrent angina. * Abnormal coronary CT angiography. COMPLICATIONS: Right groin hematoma, necessitating abandoning the completion of the procedure and the intervention. TOTAL CONTRAST: Approximately 80 mL. DESCRIPTION OF PROCEDURE: The patient was taken to the cardiac catheterization lab after the appropriate operative consents were signed. He was prepped and draped in the usual fashion. After conscious sedation was administered, the right common femoral artery region was infiltrated with 2% Xylocaine without epinephrine. It is important to note that this patient had severe musculoskeletal disorders that have resulted in severe pain and inability to lie flat for an extended period of time. Moreover, he had significant pain in the right groin prior to initiating the procedure, however, the artery was palpable as an accessible in the area of access. The conscious sedation was administered first and then 2% Xylocaine without epinephrine we utilized without difficulty. The right common femoral artery was then cannulated with an anterior wall stick. The vessel was cannulated and a wire was advanced and a 6-[place] sheath was advanced in retrograde fashion by modified Seldinger technique. An FL4 6-[place] catheter was advanced and selectively engaged in the ostium of the left main. Imaging was obtained in multiplane. The left main was a moderately sized vessel that was calcified, however, did not have any significant stenotic lesions. It bifurcated into LAD, and a circumflex. The circumflex coronary artery was a moderately sized vessel that gave rise to several marginal branches and ongoing circ. The proximal area of the circumflex had a calcified 80% hazy-looking lesion prior to the takeoff of the first obtuse marginal. The first obtuse marginal was a branching vessel. The inferior branch of which was small and the superior branch was more sizable vessel had an 80% stenotic lesion with evidence of competitive flow distally from a vein graft. The ongoing circ consisted of several marginal branches that were clearly compromised by the critical proximal lesion. The LAD was a moderately sized vessel in the proximal portion. It gave rise to septal perforators and diagonals, but was occluded 100% after a tiny first diagonal. The distal LAD was not visualized by little traverse injections. At this point, the catheter was withdrawn and FR4 6-[place] catheter was advanced, selectively engaged in the ostium of the right coronary artery. This was a calcified moderately large vessel that was noted to have a proximal 99% lesion and a mid 99% lesion. It gave rise to an acute marginal branch, which had competitive flow and it gave rise to tiny PDA and a branching PLVB, which also had competitive flow. The catheter was then engaged in the saphenous vein graft to the RCA. This was sizable graft that supplied the posterior left ventricular branch, which was a branching vessel, distal to the anastomosis. Proximal anastomosis, there was an 80% stenotic lesion. The PDA was tiny. The catheter was then engaged in the saphenous vein graft to the acute margin, which was a small graft, however, was patent, supplying the acute marginal branch, which was a sizable vessel. The catheter was engaged in the saphenous vein graft to the OM1, which was a large vessel being supplied with good flow distally. During the attempts at RANGEL cannulation, I noted that the right common femoral artery region with swelling significantly with increasing level. Had an title assistant applied pressure on the vessel because of the expanding hematoma. Given that, I abandoned any attempt at cannulating the RANGEL, which was documented to be patent by coronary CT angiography, however, I elected not to intervene in the circumflex, which was the intended approach after the imaging was reviewed. However, because of the hematoma and the fact that the patient will require significant doses of heparin and dual antiplatelet therapy, I elected to stop the procedure at this point. I performed angiography of the right common femoral artery, which documented a leak at the site of catheter entry. Given that, we utilized a Perclose and Angio-Seal with good hemostasis. Manual pressure was applied for 30 minutes after the Perclose and Angio-Seal was deployed with no additional hematoma. The distal pulses were intact. At this point, the procedure was completed. The patient tolerated well and left the cardiac catheterization lab in stable condition. FINAL IMPRESSION: * Severe little traverse 3-vessel coronary artery disease. * Patent saphenous vein graft to OM1, saphenous vein graft to the PLVB, saphenous vein graft to the acute marginal branch of the RCA. * Patent RANGEL by CT angiography. PLAN: Continue to optimize medical management. I will consider intervention at a different setting, likely with anesthesia because of the patient's significant symptoms of musculoskeletal disease. TID: [id number] RECEIPT: [id number] ASSESSMENT: CAD s/p Left Heart Cath post with Angina POA s/p Left heart cath: findings Severe 3 Vessel Coronary disease POA Chronic pain: Secondary to chronic lumbosacral disease ,osteoarthritis,and osteoporosis POA chronic HLD, HTN BPH CAD hx CABG x4 05/2016 PLAN: Admit:PCCU ( Observation ) condition: guarded Status: Full Code IVF: NS post left cath protocol Consultants; Job Cost Estimator DR Sparrow. s/p Left Heart cath: will followed post operative recommendations Troponin x2 q 6 hrs Nitroglycerin 0.4 mg po as directed Home Medications: resumed Flomax 0.4 mg p.o. daily atorvastatin 40 mg p.o. daily lisinopril 10 mg p.o. a.m. lisinopril 20 mg at bedtime [id number] mg daily, Balsalazide 750 mg 3 tabs 3x skye;u Azathioprine 100 ,g [p a,/ Labs cbc, cmp, mag+ Replace electrolytes as needed as per protocol to keep potassium above 4.0 magnesium 2.0. Home medications pending to be reviewed by RN nurse. PRN: MEDICATIONS Tylenol 650 mg po every 4 hrs for fever Zofran 4 mg IV every 6 hrs for n/v bowel regiment: lactulose 20 gm PO BID PRN constipation Pain management:Oxycodone 10 mg po TID as needed for pain. fall precaution Supportive measures: DVT ppx, GI ppx SCD. famotidine all questions answered time spent: > 35 min Supervising MD: Dr. Valderrama c/d This document was generated in part using voice recognition software, occasional wrong word or sound alike substitutions may have occurred due to the inherent limitations of voice recognition software. Read the chart carefully and recognize using context, where the substitutions have occurred. Although every effort was made to edit the content, oracle distribution consultant and typing errors may occur ADVANCED CARE PLANNING 1. Which of the following were discussed? Hospice Care - Yes / No Therapeutic options - Yes / No Advance Directives - Yes / No Other discussions - 2. Discussed with who? 3. Voluntary nature of this service was explained to the patient? Yes / No 4. Amount of time spent - 5. Reviewed by Physician? (if this service was performed by NPP) Yes / No ATTESTATION BY PHYSICIAN I have seen and examined the patient. I reviewed the documentation, medical decision making, and treatment plan as noted by the mid-level provider above. I agree with the findings and plan of care. DARON VALDERRAMA MD, [facility] SCIENCE PROFESSOR Nov 21, 2024 14:12
[2024-11-21] MEDS ORDERED: MAGNESIUM 2GM PREMIX 50ML 50 ML IV PRN (14:30)
[2024-11-21] MEDS ORDERED: PoTASSium chloRIDE 20MEQ ER 20 MEQ ERTAB PO PRN (14:30)
[2024-11-21] MEDS ORDERED: PoTASSium chl 10% ELIXIR 20MEQ 20 MEQ/15 ML UDCUP PO PRN (14:30)
[2024-11-21] MEDS ORDERED: acetaMINOPHEN 325 MG TAB PO PRN (14:30)
[2024-11-21] MEDS ORDERED: PoTASSium chloRIDE 20MEQ/100ML 100 ML IV PRN (14:30)
[2024-11-21] MEDS ORDERED: LACTULOSE 20 GM/30 ML UDCUP PO PRN (15:00)
--- NOTE | 2024-11-21 17:07 | CONS ---
[facility] CARDIOLOGY CONSULTATION NOTE Date Patient Seen: Nov 21, 2024 Time of Visit: 16:38 Reason for Consultation: [post - procedural chest pain ] History of Present Illness: [ 74-year-old male that follows up at clinic with Dr. Rm, with a past medical history of hypertension, hyperlipidemia, coronary artery disease status post remote CABG 4v per Dr. Danny Dobbins in 2015, stage II diastolic dysfunction with mildly reduced ejection fraction 40-45% echo in March 2024. The patient underwent a coronary CTA (09/11/2024) severe stenosis appreciated on the left main, ostial and proximal to the mid LAD,patent RANGEL-LAD, SVG-OM and SVG-RCA, thoracic aorta was noted to be 4.5 cm with a proximal ascending aortic aneurysm. On his last office visit on 10/25/2024 the patient was endorsing exertional chest discomfort averages once every 3-4 weeks. At that time the discussion was held with the patient regarding coronary angiogram all the benefits were discussed with the patient's as well as complications and goals, at that time the patient verbalized understanding and consented to move forward with the elective procedure to be done today , acces was obtained trough the right groin area , and oozing was noted during the procedure as well as a slight hematoma so the decision was made to abort the procedure,no intervention was done, and the patient was admitted for overnight observation. Post procedure the patient started endorsing chest pain , ECG during his chest pain showed sinus rhythm with subtle T weave inversions noted inferiorly. nothing concernign compared to prior ECG ,initial HS troponin was 12, upon or bedside evaluation the patient denies any chest pain , palpitations , dyspnea or any other anginal equivalents. Right groin access site appears clean with no no hematoma. ] Past Medical History: [Refer to chart ] Past Surgical History: [Refer to HPI] Family History: [ Refer to HPI] Social History: [Refer to HPI ] Habits: [Never] smoker. [Denies] alcohol consumption. [Denies] illicit drug use Review of Systems: A review of 12 point system was negative set per HPI Physical Examination: GENERAL: [No acute distress.] HEAD: [Normal with no signs of head trauma.] EYES: [PERRLA, EOMI, conjunctiva and sclera normal.] ENT: [Hearing grossly intact, normal oropharynx.] NECK: [Supple without JVD. There is no tenderness, lymphadenopathy, or masses. No thyromegaly. Normal carotid upstrokes without bruits.] LUNGS: [Clear breath sounds bilaterally. No wheezes, or rhonchi.] HEART: [Normal rate and rhythm. Normal S1 and S2 without mumurs, gallop or rub.] VASC: [Peripheral pulses +2 bilaterally.] ABD: [Bowel sounds normal, soft, nontender, no masses, no organomegaly. No audible bruits.] : [Not examined] LYMPH: [No lymphadenopathy noted.] EXT: [No clubbing, cyanosis or edema.] SKIN: [Right groin area without any evidence of hematoma] NEURO: [Awake, alert, and oriented x3. No focal sensory or strength deficits not ed.] Vital Signs (last 8hr) Date Time Temp Pulse Resp B/P (MAP) Pulse Ox O2 Delivery O2 Flow Rate FiO2 11/21/24 15:11 97 Room Air* 0 11/21/24 13:10 65 15 131/69 96 Room Air 11/21/24 12:40 62 14 119/52 96 Room Air 11/21/24 12:10 58 15 134/74 97 Room Air 11/21/24 11:40 56 14 138/66 97 Room Air 11/21/24 11:10 57 14 132/65 97 Room Air 11/21/24 10:40 97.5 57 15 127/70 95 Room Air 11/21/24 10:10 57 15 123/74 96 Room Air 11/21/24 09:55 51 15 149/63 93 Room Air 11/21/24 09:40 48 14 140/61 93 Room Air 21 11/21/24 09:25 97.3 55 14 145/75 93 Room Air 21 11/21/24 09:25 21 Laboratory: [ ] Chemistry Labs: Test 11/21/24 13:05 Range/Units Total Creatine Kinase 81 # 21-232 U/L Troponin I High Sensitivity 12.7 4-75 ng/L Diagnostics / Radiology: [Copy/Paste Echos/Imaging Report here] Assessment: [CAD status post CABG ( RANGEL-LAD, SVG-OM and SVG-RCA ) in 2016 Post coronary angiogram chest pain Hypertension Hyperlipidemia ] Plan: [# Chest pain Patient presented today for an elective coronary angiogram by Dr. Rm During the procedure it was noted oozing from the right common femoral access site as well as hematoma. Procedure was aborted was made to admit the patient overnight for observation After the procedure the patient was endorsing new onset of chest pain ECG showed sinus rhythm with ST-T wave inversions inferiorly subtle Troponin are negative x1. Upon our assessment right groin area appears with no evidence of hematoma Patient denies any cardiac symptoms or anginal equivalents at this time We will continue the patient's home medication Lisinopril 10 mg daily, atorvastatin 40 mg at bedtime, Lopressor 25 mg orally at bedtime. A staged intervention will be planned from the left radial approach by Dr Rm Continue trending troponin every 6 hrs x 2 Pending CBC results thank you for this consult cardiology will continue to follow along pending ACS rule. Zay Sparrow MD ] ATTESTATION BY PHYSICIAN I have seen and examined the patient, reviewed the above documentation, participated in medical decision making, made necessary modifications, and agree with the treatment plan as documented by my mid-level provider above. MD AYDIN Juárez JAMES R MD Nov 21, 2024 17:07
--- NOTE | 2024-11-21 17:16 | NUR ---
1410: RECEIVED PATIENT FROM DAY PATIENT VIA BED. CURRENTLY STATES HAS CHEST PAIN AT 3/10 PAIN SCALE. STATES THE PAIN IS ONLY WHEN HE TAKES A DEEP BREATH AND IS NON-RADIATING. TELEMETRY READING SR HR 72. RIGHT GROIN SOFT AND DRESSING DRY. WILL CONTINUE TO MONITOR. SPOUSE, THOR, AT BEDSIDE. 1435: ASSISTED OUT OF BED. DENIES FURTHER CHEST PAIN. RIGHT GROIN REMAINS SOFT AND DRESSING DRY.
[2024-11-21] MEDS ORDERED: OXYCODONE HCL 10 MG PO PRN (18:00)
[2024-11-21] MEDS: LISINOPRIL 20 MG TABLET PO SCH (20:29)
[2024-11-21] MEDS: atorVAStatin 40 MG TABLET PO SCH (20:29)
[2024-11-21] MEDS: ALENDRONATE SODIUM 35 MG TAB PO SCH (20:29)
[2024-11-21] MEDS: OXYcodONE HCL 5 MG TAB PO PRN (20:30)
[2024-11-21] MEDS: BALSALAZIDE DISODIUM PO SCH (20:32)
[2024-11-21] MEDS ORDERED: FAMOTIDINE 20MG VIAL IV SCH (21:00)
[2024-11-22] MEDS: morPHINE 4 MG SYG IM PRN (02:17)
[2024-11-22 03:00] VITALS: BP 137/73; PULSE 63; RESP 18; TEMP 98.8
[2024-11-22 04:24] LABS: BASOPHILS # (AUTO) 0.02 K/uL (0.00-0.20); BASOPHILS % (AUTO) 0.4 % (0.0-5.0); HEMATOCRIT 33.3 % (42-54); IMMATURE GRANULOCYTE ABSOLUTE 0.02 K/uL (0-1); LYMPHOCYTES # (AUTO) 0.8 K/uL (1.0-4.8); LYMPHOCYTES % (AUTO) 15.7 % (21.0-51.0); MEAN CORPUSCULAR VOLUME 102.8 fL (79-99); MONOCYTES # (AUTO) 0.7 K/uL (0.1-1.0); MONOCYTES % (AUTO) 13.1 % (3.0-13.0); NEUTROPHILS # (AUTO) 3.5 K/uL (1.8-7.7); NEUTROPHILS % (AUTO) 68.4 % (40.0-77.0); PLATELET COUNT (AUTO) 186 K/uL (130-400); RED BLOOD CELL COUNT(AUTO) 3.24 MIL/uL (4.50-6.20); RED CELL DISTRIBUTION WIDTH 12.4 % (11.0-15.5); WHITE BLOOD COUNT (AUTO) 5.1 K/uL (4.8-10.8)
[2024-11-22 04:39] LABS: ALBUMIN 2.9 g/dL (3.5-5.0); BILIRUBIN,TOTAL 0.9 mg/dL (0.2-1.0); POTASSIUM 3.9 mmol/L (3.5-5.1); TOTAL PROTEIN, SERUM 5.8 g/dL (6.0-8.3)
[2024-11-22 07:00] VITALS: BP 134/66; PULSE 63; RESP 16; TEMP 98.8
--- NOTE | 2024-11-22 07:31 | PN ---
[facility] CARDIOLOGY PROGRESS NOTE Date Patient Seen: Nov 22, 2024 Time of Visit: 07:30 Problem List: Elective heart cath secondary to recurrent angina Known Severe 3 vessel CAD per hx and CCTA with severe stenosis, post left heart catheterization with intervention aborted secondary to hematoma to the access site Cath findings: * Severe [place] 3-vessel coronary artery disease. * Patent saphenous vein graft to OM1, saphenous vein graft to the PLVB, saphenous vein graft to the acute marginal branch of the RCA. * Patent RANGEL by CT angiography. Severe back pain with lumbosacral disease, on chronic pain medication OA HTN HLD BPH Interval History: PT developed angina post procedure, his EKG showed some T wave inversion, he was treated for pain, monitored for improvement. Pt had negative troponin levels, he also had stable hgb overnight. Today pt will get OOB to ambulate and if he does well and no further chest discomfort, we can discharge him home this afternoon. Repeat 12 lead is pending for this morning. Ranolazine will be added to regimen and pt to continue his home medications. Physical Examination: GENERAL: [No acute distress.] HEAD: [Normal with no signs of head trauma.] EYES: [PERRLA, EOMI, conjunctiva and sclera normal.] ENT: [Hearing grossly intact, normal oropharynx.] NECK: [Supple without JVD. There is no tenderness, lymphadenopathy, or masses. No thyromegaly. Normal carotid upstrokes without bruits.] LUNGS: [Clear breath sounds bilaterally. Diminished to bases, No wheezes, or rhonchi.] HEART: [Normal rate and rhythm. Normal S1 and S2 without murmurs, gallop or rub.] VASC: [Peripheral pulses +2 bilaterally.] ABD: [Bowel sounds normal, soft, nontender, no masses, no organomegaly. No audible bruits.] : [Not examined] LYMPH: [No lymphadenopathy noted.] EXT: [No clubbing, cyanosis or edema, no hematoma, pulses palpable.] SKIN: [Right groin area without any evidence of hematoma] NEURO: [Awake, alert, and oriented x3. No focal sensory or strength deficits noted.] Laboratory: [ ] Hematology Labs: Test 11/22/24 04:00 Range/Units White Blood Count 5.1 4.8-10.8 K/uL Red Blood Count 3.24 L 4.50-6.20 MIL/uL Hemoglobin 11.0 L 14.0-18.0 g/dL Hematocrit 33.3 L 42-54 % Mean Corpuscular Volume 102.8 H 79-99 fL Mean Corpuscular Hemoglobin 34.0 H 27.0-33.0 pg Mean Corpuscular Hemoglobin Concent 33.0 32.0-36.0 g/dL Red Cell Distribution Width 12.4 11.0-15.5 % Platelet Count 186 130-400 K/uL Mean Platelet Volume 10.1 7.5-10.5 fL Immature Granulocyte % (Auto) 0.4 0-1 % Neutrophils (%) (Auto) 68.4 40.0-77.0 % Lymphocytes (%) (Auto) 15.7 L 21.0-51.0 % Monocytes (%) (Auto) 13.1 H 3.0-13.0 % Eosinophils (%) (Auto) 2.0 0.0-8.0 % Basophils (%) (Auto) 0.4 0.0-5.0 % Neutrophils # (Auto) 3.5 1.8-7.7 K/uL Lymphocytes # (Auto) 0.8 L 1.0-4.8 K/uL Monocytes # (Auto) 0.7 0.1-1.0 K/uL Eosinophils # (Auto) 0.10 0.00-0.70 K/uL Basophils # (Auto) 0.02 0.00-0.20 K/uL Absolute Immature Granulocyte (auto 0.02 0-1 K/uL Nucleated Red Blood Cells 0.0 0.0-0.19 % Chemistry Labs: Test 11/22/24 04:00 11/22/24 00:14 11/21/24 13:05 Range/Units Sodium Level 139 136-145 mmol/L Potassium Level 3.9 3.5-5.1 mmol/L Chloride Level 105 101-111 mmol/L Carbon Dioxide Level 28 21-32 mmol/L Blood Urea Nitrogen 19 H 7-18 mg/dL Creatinine 1.0 0.5-1.3 mg/dL Glomerular Filtration Rate Calc 79 >90 mL/min Random Glucose 90 70-105 mg/dL Total Calcium 8.5 8.5-10.1 mg/dL Magnesium Level 2.00 1.80-2.40 mg/dL Total Bilirubin 0.9 0.2-1.0 mg/dL Aspartate Amino Transf (AST/SGOT) 20 10-37 U/L Alanine Aminotransferase (ALT/SGPT) 12 12-78 U/L Alkaline Phosphatase 59 50-136 U/L Total Protein 5.8 L 6.0-8.3 g/dL Albumin 2.9 L 3.5-5.0 g/dL Troponin I High Sensitivity 17 4-75 ng/L Total Creatine Kinase 81 # 21-232 U/L Diagnostics / Radiology: [Copy/Paste Echos/Imaging Report here] Impression and Plan: Continue asa 81 mg po daily Continue Atorvastatin 40mg po daily Continue lisinopril 10 mg po daily Add Ranolazine 500mg po bid AJ MITCHELL NP Nov 22, 2024 07:31
--- NOTE | 2024-11-22 07:42 | PN ---
[facility] PROGRESS NOTE Date of Service: Nov 22, 2024 Time of Service: 07:41 SUBJECTIVE: [ ] Mr. Villalba is a 74-year-old male with a significant past medical history for CAD status post CABG x4 vessel disease 2015, stage II diastolic dysfunction EF of 40-45% on echo in March 2024. hypertension, hyperlipidemia, chronic lumbo sacral disease, osteoarthritis, BPH and osteoporosis underwent outpatient left heart catheterization with today post procedure patient started to complained of chest pain. First set of troponin was negative.DR Rm wants patient to be admitted under hospitalist for observation. 11/23/23 REVIEW OF SYSTEMS a 14 ROS was obtained all relevant positives documented otherwise ROS negative PHYSICAL EXAM GENERAL APPEARANCE: The patient is awake, alert, and oriented, in no acute cardiopulmonary distress. NEUROLOGICAL: Cranial nerves II-XII grossly intact. Motor is 5/5 in bilateral upper and lower extremities proximal to distal. No sensory deficits. HEENT: Face is symmetric. Pupils are equal and reactive. Extraocular movements are intact. NECK: Supple. No JVD. No thyromegaly. No submental, submandibular, pre- /postauricular, occipital or supraclavicular lymphadenopathy. CHEST: Normal chest expansion. No Telemetry. LUNGS: Absence of any rales, rhonchi or any wheezing. CARDIOVASCULAR: Regular. S1 and S2 normal. No appreciable rubs, murmurs or gallops. ABDOMEN: Soft, nontender, and nondistended. There is no rebound, voluntary guarding, or rigidity. : Deferred. No Patel. EXTREMITIES: Non-edematous and not cyanotic. No clubbing. Good capillary refill. SKIN: No skin breakdown. right groin with dressing: dry clean intact no Hematoma noted Vital Signs (last 8hr) Date Time Temp Pulse Resp B/P (MAP) Pulse Ox O2 Delivery O2 Flow Rate FiO2 11/22/24 03:00 98.8 63 18 137/73 96 Room Air LABS: Laboratory: Test 11/22/24 04:00 11/22/24 00:14 11/21/24 13:05 Range/Units White Blood Count 5.1 4.8-10.8 K/uL Red Blood Count 3.24 L 4.50-6.20 MIL/uL Hemoglobin 11.0 L 14.0-18.0 g/dL Hematocrit 33.3 L 42-54 % Mean Corpuscular Volume 102.8 H 79-99 fL Mean Corpuscular Hemoglobin 34.0 H 27.0-33.0 pg Mean Corpuscular Hemoglobin Concent 33.0 32.0-36.0 g/dL Red Cell Distribution Width 12.4 11.0-15.5 % Platelet Count 186 130-400 K/uL Mean Platelet Volume 10.1 7.5-10.5 fL Immature Granulocyte % (Auto) 0.4 0-1 % Neutrophils (%) (Auto) 68.4 40.0-77.0 % Lymphocytes (%) (Auto) 15.7 L 21.0-51.0 % Monocytes (%) (Auto) 13.1 H 3.0-13.0 % Eosinophils (%) (Auto) 2.0 0.0-8.0 % Basophils (%) (Auto) 0.4 0.0-5.0 % Neutrophils # (Auto) 3.5 1.8-7.7 K/uL Lymphocytes # (Auto) 0.8 L 1.0-4.8 K/uL Monocytes # (Auto) 0.7 0.1-1.0 K/uL Eosinophils # (Auto) 0.10 0.00-0.70 K/uL Basophils # (Auto) 0.02 0.00-0.20 K/uL Absolute Immature Granulocyte (auto 0.02 0-1 K/uL Nucleated Red Blood Cells 0.0 0.0-0.19 % Sodium Level 139 136-145 mmol/L Potassium Level 3.9 3.5-5.1 mmol/L Chloride Level 105 101-111 mmol/L Carbon Dioxide Level 28 21-32 mmol/L Blood Urea Nitrogen 19 H 7-18 mg/dL Creatinine 1.0 0.5-1.3 mg/dL Glomerular Filtration Rate Calc 79 >90 mL/min Random Glucose 90 70-105 mg/dL Total Calcium 8.5 8.5-10.1 mg/dL Magnesium Level 2.00 1.80-2.40 mg/dL Total Bilirubin 0.9 0.2-1.0 mg/dL Aspartate Amino Transf (AST/SGOT) 20 10-37 U/L Alanine Aminotransferase (ALT/SGPT) 12 12-78 U/L Alkaline Phosphatase 59 50-136 U/L Total Protein 5.8 L 6.0-8.3 g/dL Albumin 2.9 L 3.5-5.0 g/dL Troponin I High Sensitivity 17 4-75 ng/L Total Creatine Kinase 81 # 21-232 U/L Current Medications Medications (Trade) Dose Ordered Sig/Pratibha Route PRN Reason Start Time Stop Time Status Last Admin Dose Admin Acetaminophen (TYLenol 325MG TAB) 650 mg Q4H PRN PO TEMPERATURE GREATER THAN 101.5 11/21/24 14:30 12/21/24 14:29 Alendronate Sodium (Fosamax 35mg Tab) 70 mg QWEEK@0630 PO 11/21/24 19:00 12/21/24 18:59 11/21/24 20:29 70 MG Aspirin (Aspirin 81mg Ec Tab) 81 mg DAILY PO 11/22/24 09:00 12/22/24 08:59 Atorvastatin Calcium (LIPItor 40MG) 40 mg HS PO 11/21/24 21:00 12/21/24 20:59 11/21/24 20:29 40 MG Azathioprine (Imuran) 100 mg AM PO 11/22/24 09:00 12/22/24 08:59 Famotidine (Pepcid 20mg Vial) 20 mg BID IV 11/21/24 21:00 11/21/24 14:54 DC Home Med (Home Medication) Balsalazide Disodium 3 TAB TID PO 11/21/24 21:00 12/21/24 20:59 Home Med (Home Medication) Vitamin D3 1 TAB DAILY PO 11/22/24 09:00 12/22/24 08:59 Lactulose (Constulose 20gm/ 30ml Udcup) 20 gm BID PRN PO CONSTIPATION 11/21/24 15:00 12/21/24 14:59 Lisinopril (Prinivil 10mg) 10 mg AM PO 11/22/24 09:00 12/22/24 08:59 Lisinopril (Prinivil 20mg) 20 mg HS PO 11/21/24 21:00 12/21/24 20:59 11/21/24 20:29 20 MG Magnesium Sulfate 50 ml @ 0 mls/hr PROTOCOL PRN IV low mag level 11/21/24 14:30 12/21/24 14:29 Miscellaneous Medication (Oxycodone HCl ) 10 mg TID PRN PO P 11/21/24 18:00 11/21/24 17:51 DC Morphine Sulfate (morPHINE 4MG SYG) 4 mg Q2HPRN PRN IM MODERATE PAIN (4-6) 11/21/24 09:00 11/28/24 08:59 11/22/24 02:17 4 MG Ondansetron HCl (zoFRAN 4MG INJ) 4 mg Q6H PRN IVP NAUSEA/VOMITING 11/21/24 09:00 12/21/24 08:59 Oxycodone HCl (ROXicoDONE) 10 mg TID PRN PO SEVERE PAIN (7-10) 11/21/24 15:00 11/28/24 14:59 11/21/24 20:30 10 MG Pantoprazole Sodium (PROTonix 40MG INJ) 40 mg DAILY IVP 11/22/24 09:00 11/21/24 17:44 DC Pantoprazole Sodium (PROTonix 40MG TAB) 40 mg AM PO 11/22/24 09:00 12/22/24 08:59 Potassium Chloride 100 ml @ 100 mls/hr AD PRN IV POTASSIUM PROTOCOL 11/21/24 14:30 12/21/24 14:29 Potassium Chloride (K-Dur/Klor-Con 20meq) 20 meq AD PRN PO POTASSIUM PROTOCOL 11/21/24 14:30 12/21/24 14:29 Potassium Chloride (KCl 10% Elixir 20meq/15ml) 20 meq AD PRN PO POTASSIUM PROTOCOL 11/21/24 14:30 12/21/24 14:29 Ranolazine (Ranexa) 500 mg BID PO 11/22/24 09:00 12/22/24 08:59 Sodium Chloride 1,000 ml @ 0 mls/hr Q0M IV 11/21/24 06:30 11/21/24 17:38 DC 11/21/24 06:50 30 MLS/HR Sodium Chloride 1,000 ml @ 150 mls/hr Q6H40M IV 11/21/24 09:00 11/21/24 14:59 DC Tamsulosin HCl (FloMAX) 0.4 mg AM PO 11/22/24 09:00 12/22/24 08:59 DIAGNOSTICS / RADIOLOGY: [ ] ASSESSMENT: CAD s/p Left Heart Cath post with Angina POA s/p Left heart cath: findings Severe 3 Vessel Coronary disease POA Chronic pain: Secondary to chronic lumbosacral disease ,osteoarthritis,and osteoporosis POA chronic HLD, HTN BPH CAD hx CABG x4 05/2016 PLAN: Admit:PCCU ( Observation ) condition: guarded Status: Full Code IVF: NS post left cath protocol Consultants; Spinning Frame Cleaner DR Sparrow. s/p Left Heart cath: will followed post operative recommendations Troponin x2 q 6 hrs Nitroglycerin 0.4 mg po as directed Home Medications: resumed Flomax 0.4 mg p.o. daily atorvastatin 40 mg p.o. daily lisinopril 10 mg p.o. a.m. lisinopril 20 mg at bedtime [id number] mg daily, Balsalazide 750 mg 3 tabs 3x skye;u Azathioprine 100 ,g [p a,/ Labs cbc, cmp, mag+ Replace electrolytes as needed as per protocol to keep potassium above 4.0 magnesium 2.0. Home medications pending to be reviewed by RN nurse. PRN: MEDICATIONS Tylenol 650 mg po every 4 hrs for fever Zofran 4 mg IV every 6 hrs for n/v bowel regiment: lactulose 20 gm PO BID PRN constipation Pain management:Oxycodone 10 mg po TID as needed for pain. fall precaution Supportive measures: DVT ppx, GI ppx SCD. famotidine all questions answered time spent: > 35 min Supervising MD: Dr. Valderrama c/d This document was generated in part using voice recognition software, occasional wrong word or sound alike substitutions may have occurred due to the inherent limitations of voice recognition software. Read the chart carefully and recognize using context, where the substitutions have occurred. Although every effort was made to edit the content, global coordinator and typing errors may occur ADVANCED CARE PLANNING 1. Which of the following were discussed? Hospice Care - Yes / No Therapeutic options - Yes / No Advance Directives - Yes / No Other discussions - 2. Discussed with who? 3. Voluntary nature of this service was explained to the patient? Yes / No 4. Amount of time spent - 5. Reviewed by Physician? (if this service was performed by NPP) Yes / No ATTESTATION BY PHYSICIAN I have seen and examined the patient. I reviewed the documentation, medical decision making, and treatment plan as noted by the mid-level provider above. I agree with the findings and plan of care. DARON VALDERRAMA MD, ELIZABETH NP Nov 22, 2024 07:41
[2024-11-22 08:00] VITALS: O2SAT 98
[2024-11-22] MEDS: ASPIRIN 81 MG EC TAB PO SCH (08:33)
[2024-11-22] MEDS: LISINOPRIL 10 MG TABLET PO SCH (08:34)
[2024-11-22] MEDS: PANTOPrazole 40 MG TAB DR PO SCH (08:34)
[2024-11-22] MEDS: AZATHIOPRINE 50 MG TAB PO SCH (08:34)
[2024-11-22] MEDS: RANOLAZINE 500 MG TAB.SR.12H PO SCH (08:34)
[2024-11-22] MEDS: tamSULOsin HCL 0.4 MG CAP.ER.24H PO SCH (08:34)
[2024-11-22] MEDS: VITAMIN D3 PO SCH (09:00)
[2024-11-22] MEDS ORDERED: PANTOPrazole 40 MG/VIAL IVP SCH (09:00)
--- NOTE | 2024-11-22 09:32 | EKG ---
[facility] Test Date: 2024-11-22 Test Time: 09:16:40 Pat Name: LEYLA ZARCO Department: [facility] Room: 225 1 Gender: M Bulk Filler: [id number] : 1950 Requested By: AJ MITCHELL Order Number: [id number] Reading MD: Mj Morgan Measurements Intervals [place] Rate: 68 P: 16 IA: 168 QRS: -13 QRSD: 106 T: 127 QT: 416 QTc: 444 Interpretive Statements Sinus rhythm Inferior infarct, old Nonspecific T abnormalities, lateral leads Compared to ECG 11/21/2024 12:50:48 Myocardial infarct finding now present Possible ischemia no longer present T-wave abnormality still present Electronically Signed On 11-22-2024 11:20:58 CDT by Mj Morgan Please click the below link to view image of tracing.
--- NOTE | 2024-11-22 10:01 | NUR ---
DCP: HOME Sw met with pt and Skyla [phone]. Couple has their own home, deny issues affording utilities or food at this time. Pt describes himself as very active, and independent. Can complete self care on his own, uses a walker with seat to ambulate, no in home care services. PCP is Samuel Rivas and uses [facility] for rx as needed. Pt denies dc needs and states he will return home at al Addendum: 11/22/24 at 1006 by ANTHONY BARRIOS Amended: Links added.
[2024-11-22] MEDS ORDERED: RANO500T2 PO (10:41)
[2024-11-22] MEDS ORDERED: NITR0.4T50 SL (10:46)
--- NOTE | 2024-11-22 10:51 | DS ---
Discharge Summary Hospital Course Summary: Mr. Villalba is a 74-year-old male with a significant past medical history for CAD status post CABG x4 vessel disease 2015, stage II diastolic dysfunction EF of 40-45% on echo in March 2024. hypertension, hyperlipidemia, chronic lumbo sacral disease, osteoarthritis, BPH and osteoporosis underwent outpatient left heart catheterization with today post procedure patient started to complained of chest pain. First set of troponin was negative.DR Liu wants patient to be admitted under hospitalist for observation. 11/22/2024. Patient is clinically and hemodynamically stable for discharge patient ambulated no further chest discomfort . [employer]k [employer]er's cleared patie nt. continue with current medication [id number] mg p.o. daily, atorvastatin 40 mg p.o. daily and lisinopril 10 mg p.o. daily. Per instructor physical education's added Ranexa 500 mg b.i.d.. Nitroglycerin 0.4 mg sublingually as directed for chest pain instructed patient how to take medication. Monologist(s): REASON: PRE OP ORDERING PHYSICIAN: Bhavesh LIU II, MD PROCEDURE: CXR1VW - CHEST 1VW CHEST 1VW HISTORY: Preop COMPARISON: 03/08/2018 FINDINGS: A frontal projection of the chest was obtained. No acute pulmonary infiltrates is seen. The heart is normal in size. Sternotomy changes are seen. Degenerative changes are seen. Aortic calcifications are seen IMPRESSION: 1. No acute pulmonary infiltrate is seen. Procedure(s): PATIENT NAME: LEYLA VILLALBA JR : 1950, SEX: M ADMIT DT: DISCHARGE DT: ATTENDING: Bhavesh LIU II, MD DICTATED: Bhavesh LIU II, MD REPORT: PROCEDURE REPORT PROCEDURES: * Selective right and left coronary arteriogram. * Saphenous vein graft angiogram. * Conscious sedation for 60 minutes. INDICATIONS: * Severe coronary artery disease. * Recurrent angina. * Abnormal coronary CT angiography. COMPLICATIONS: Right groin hematoma, necessitating abandoning the completion of the procedure and the intervention. TOTAL CONTRAST: Approximately 80 mL. DESCRIPTION OF PROCEDURE: The patient was taken to the cardiac catheterization lab after the appropriate operative consents were signed. He was prepped and draped in the usual fashion. After conscious sedation was administered, the right common femoral artery region was infiltrated with 2% Xylocaine without epinephrine. It is important to note that this patient had severe musculoskeletal disorders that have resulted in severe pain and inability to lie flat for an extended period of time. Moreover, he had significant pain in the right groin prior to initiating the procedure, however, the artery was palpable as an accessible in the area of access. The conscious sedation was administered first and then 2% Xylocaine without epinephrine we utilized without difficulty. The right common femoral artery was then cannulated with an anterior wall stick. The vessel was cannulated and a wire was advanced and a 6-Australian sheath was advanced in retrograde fashion by modified Seldinger technique. An FL4 6-Australian catheter was advanced and selectively engaged in the ostium of the left main. Imaging was obtained in multiplane. The left main was a moderately sized vessel that was calcified, however, did not have any significant stenotic lesions. It bifurcated into LAD, and a circumflex. The circumflex coronary artery was a moderately sized vessel that gave rise to several marginal branches and ongoing circ. The proximal area of the circumflex had a calcified 80% hazy-looking lesion prior to the takeoff of the first obtuse marginal. The first obtuse marginal was a branching vessel. The inferior branch of which was small and the superior branch was more sizable vessel had an 80% stenotic lesion with evidence of competitive flow distally from a vein graft. The ongoing circ consisted of several marginal branches that were clearly compromised by the critical proximal lesion. The LAD was a moderately sized vessel in the proximal portion. It gave rise to septal perforators and diagonals, but was occluded 100% after a tiny first diagonal. The distal LAD was not visualized by iliamna injections. At this point, the catheter was withdrawn and FR4 6-Australian catheter was advanced, selectively engaged in the ostium of the right coronary artery. This was a calcified moderately large vessel that was noted to have a proximal 99% lesion and a mid 99% lesion. It gave rise to an acute marginal branch, which had competitive flow and it gave rise to tiny PDA and a branching PLVB, which also had competitive flow. The catheter was then engaged in the saphenous vein graft to the RCA. This was sizable graft that supplied the posterior left ventricular branch, which was a branching vessel, distal to the anastomosis. Proximal anastomosis, there was an 80% stenotic lesion. The PDA was tiny. The catheter was then engaged in the saphenous vein graft to the acute margin, which was a small graft, however, was patent, supplying the acute marginal branch, which was a sizable vessel. The catheter was engaged in the saphenous vein graft to the OM1, which was a large vessel being supplied with good flow distally. During the attempts at RANGEL cannulation, I noted that the right common femoral artery region with swelling significantly with increasing level. Had an construction management assistant applied pressure on the vessel because of the expanding hematoma. Given that, I abandoned any attempt at cannulating the RANGEL, which was documented to be patent by coronary CT angiography, however, I elected not to intervene in the circumflex, which was the intended approach after the imaging was reviewed. However, because of the hematoma and the fact that the patient will require significant doses of heparin and dual antiplatelet therapy, I elected to stop the procedure at this point. I performed angiography of the right common femoral artery, which documented a leak at the site of catheter entry. Given that, we utilized a Perclose and Angio-Seal with good hemostasis. Manual pressure was applied for 30 minutes after the Perclose and Angio-Seal was deployed with no additional hematoma. The distal pulses were intact. At this point, the procedure was completed. The patient tolerated well and left the cardiac catheterization lab in stable condition. FINAL IMPRESSION: * Severe iliamna 3-vessel coronary artery disease. * Patent saphenous vein graft to OM1, saphenous vein graft to the PLVB, saphenous vein graft to the acute marginal branch of the RCA. * Patent RANGEL by CT angiography. PLAN: Continue to optimize medical management. I will consider intervention at a different setting, likely with anesthesia because of the patient's significant symptoms of musculoskeletal disease. Assessment/Plan: discharged dx's; CAD s/p Left Heart Cath post with Angina POA s/p Left heart cath: findings Severe 3 Vessel Coronary disease POA Chronic pain: Secondary to chronic lumbosacral disease ,osteoarthritis,and osteoporosis POA chronic HLD, HTN BPH CAD hx CABG x4 05/2016 PLAN: ADMISSION DATE: 11/21/2024 DISCHARGE DATE: 11/22/2024 DISPOSITION: Home CONDITION: Stable LIFE MANAGER(S): Desk P[employer] As[employer]er's FOLLOW UP APPOINTMENT(S): Dr Liu one wk PROCEDURES: Left Heart Cath IMAGING (S) report attached to summary : MICROBIOLOGY: report attached to summary; ACTIVITY: HOME MEDICATIONS remain the same CHANGES ON HOME MEDICATIONS none NEW MEDICATIONS Nitroglycerin 0.4 Mg Tab.subl 1st sign of attack; may repeat every 5 mins; if pain persists after 3 in 15 min, medical attention is recommended Ranolazine (Ranexa) 500 Mg Tab.er.12h TEACHING: Side effects and adverse reaction of new medication instructed how to use nitroglycerin as needed for chest pain Emergency instructions: The patient was instructed to present to the nearest Emergency Department or call 911 should their symptoms return or worsen. Discharge Instructions: Item Value Date Time Red Blood Count 3.24 MIL/uL L 11/22/24 0400 White Blood Count 5.1 K/uL 11/22/24 0400 Hemoglobin 11.0 g/dL L 11/22/24 0400 Hematocrit 33.3 % L 11/22/24 0400 Mean Corpuscular Volume 102.8 fL H 11/22/24 0400 Mean Corpuscular Hemoglobin 34.0 pg H 11/22/24 0400 Mean Corpuscular Hemoglobin Concent 33.0 g/dL 11/22/24 0400 Red Cell Distribution Width 12.4 % 11/22/24 040 Platelet Count 186 K/uL 11/22/24 0400 Mean Platelet Volume 10.1 fL 11/22/24 0400 Immature Granulocyte % (Auto) 0.4 % 11/22/24 0400 Neutrophils (%) (Auto) 68.4 % 11/22/24 0400 Lymphocytes (%) (Auto) 15.7 % L 11/22/24 0400 Monocytes (%) (Auto) 13.1 % H 11/22/24 0400 Eosinophils (%) (Auto) 2.0 % 11/22/24 0400 Basophils (%) (Auto) 0.4 % 11/22/24 0400 Neutrophils # (Auto) 3.5 K/uL 11/22/24 0400 Lymphocytes # (Auto) 0.8 K/uL L 11/22/24 0400 Monocytes # (Auto) 0.7 K/uL 11/22/24 0400 Eosinophils # (Auto) 0.10 K/uL 11/22/24 0400 Basophils # (Auto) 0.02 K/uL 11/22/24 0400 Absolute Immature Granulocyte (auto 0.02 K/uL 11/22/24 0400 Nucleated Red Blood Cells 0.0 % 11/22/24 0400 Sodium Level 139 mmol/L 11/22/24 0400 Potassium Level 3.9 mmol/L 11/22/24 0400 Chloride Level 105 mmol/L 11/22/24 0400 Carbon Dioxide Level 28 mmol/L 11/22/24 0400 Blood Urea Nitrogen 19 mg/dL H 11/22/24 0400 Creatinine 1.0 mg/dL 11/22/24 0400 Glomerular Filtration Rate Calc 79 mL/min 11/22/24 0400 Total Calcium 8.5 mg/dL 11/22/24 0400 Random Glucose 90 mg/dL 11/22/24 0400 Magnesium Level 2.00 mg/dL 11/22/24 0400 Total Bilirubin 0.9 mg/dL 11/22/24 0400 Aspartate Amino Transf (AST/SGOT) 20 U/L 11/22/24 0400 Alkaline Phosphatase 59 U/L 11/22/24 0400 Alanine Aminotransferase (ALT/SGPT) 12 U/L 11/22/24 0400 Troponin I High Sensitivity 17 ng/L 11/22/24 0014 Troponin I High Sensitivity 17 ng/L 11/21/24 1757 Troponin I High Sensitivity 12.7 ng/L 11/21/24 1305 Total Creatine Kinase 81 U/L # 11/21/24 1305 Total Protein 5.8 g/dL L 11/22/24 0400 Albumin 2.9 g/dL L 11/22/24 0400 Urine Bacteria None /HPF 11/18/24 0800 Urine WBC 2-5 /HPF H 11/18/24 0800 Urine RBC 6-10 /HPF H 11/18/24 0800 Urine Urobilinogen 0.2 mg/dL 11/18/24 0800 Urine Bilirubin NEGATIVE mg/dL 11/18/24 08 Urine Nitrate NEGATIVE 11/18/24 08 Urine Occult Blood NEGATIVE 11/18/24 0800 Urine Ketones NEGATIVE mg/dL 11/18/24799 Urine Glucose (UA) NEGATIVE mg/dL 11/18/24 0800 Urine Protein 20 mg/dL H 11/18/24 0800 Urine Specific [place] 1.031 11/18/24 0800 Urine pH 5.5 11/18/24 08 Urine Color YELLOW 11/18/24 0800 Urine Appearance CLEAR 11/18/24 0800 Urine Leukocyte Esterase NEGATIVE Alexandre/uL 11/18/24 0800 Home Medications: Active Scripts Nitroglycerin (Nitroglycerin) 0.4 Mg Tab.subl, 1 TAB SL AD for chest pain, #25 TAB 0 Refills 1st sign of attack; may repeat every 5 mins; if pain persists after 3 in 15 min, medical attention is recommended Prov:TICO CELIS NP 11/22/24 Ranolazine (RANEXA) 500 Mg Tab.er.12h, 500 MG PO BID for 30 Days, #60 TAB Prov:TICO CELIS NP 11/22/24 Aspirin (ASPIRIN 81 MG ECTAB) 81 Mg Ectab, 81 MG PO BID for DVT PROPHYLAXIS, #40 TAB.EC Prov:HAYDEN STREET MD 12/13/21 Reported Medications Oxycodone HCl (Oxycodone HCl) 10 Mg Tablet, 10 MG PO TID PRN for PAIN, TAB 11/18/24 [Vitamin D3] No Conflict Check, 1 TAB PO DAILY 11/18/24 Alendronate Sodium (Alendronate Sodium) 70 Mg Tablet, 70 MG PO THURSDAY, TAB 11/18/24 Lisinopril (Lisinopril) 10 Mg Tablet, 10 MG PO AM, TAB 11/18/24 Atorvastatin Calcium (Atorvastatin Calcium) 40 Mg Tablet, 40 MG PO AM, TAB 10/11/21 Tamsulosin HCl (Flomax) 0.4 Mg Cap.er.24h, 0.4 MG PO AM, CAPSULE.DR 10/11/21 Pantoprazole Sodium (Pantoprazole Sodium) 40 Mg Tablet.dr, 40 MG PO AM, TAB 08/08/21 Azathioprine (Imuran) 50 Mg Tablet, 100 MG PO AM, TAB 08/08/21 Balsalazide Disodium (Balsalazide Disodium) 750 Mg Capsule, 3 TAB PO TID, CAP 08/08/21 Lisinopril (Lisinopril) 20 Mg Tablet, 20 MG PO HS, TAB 08/08/21 Discontinued Reported Medications Oxycodone HCl/Acetaminophen (Percocet 5-325 mg Tablet) 1 Each Tablet, 1-2 TAB PO Q8H PRN for PAIN LEVEL 4 TO 6, TAB 12/10/21 Discontinued Scripts Oxycodone HCl/Acetaminophen (Percocet 5-325 mg Tablet) 1 Each Tablet, 1-2 EACH PO Q6HPRN PRN for ACUTE POST-OP PAIN (G89.18), #56 TAB 0 Refills Prov:HAYDEN STREET MD 12/13/21 Ferrous Sulfate (Ferrous Sulfate) 325 Mg Ectab, 325 MG PO DAILY for POST-OP ANEMIA, #30 TAB.EC 0 Refills Prov:HAYDEN STREET MD 12/13/21 New Medications: Nitroglycerin (Nitroglycerin) 0.4 Mg Tab.subl 1 TAB SL AD for chest pain, #25 TAB 0 Refills 1st sign of attack; may repeat every 5 mins; if pain persists after 3 in 15 min, medical attention is recommended Ranolazine (Ranexa) 500 Mg Tab.er.12h 500 MG PO BID for 30 Days, #60 TAB Continued Medications: Alendronate Sodium (Alendronate Sodium) 70 Mg Tablet 70 MG PO THURSDAY, TAB Aspirin (Aspirin 81 Mg Ectab) 81 Mg Ectab 81 MG PO BID for DVT PROPHYLAXIS, #40 TAB.EC Atorvastatin Calcium (Atorvastatin Calcium) 40 Mg Tablet 40 MG PO AM, TAB Azathioprine (Imuran) 50 Mg Tablet 100 MG PO AM, TAB Balsalazide Disodium (Balsalazide Disodium) 750 Mg Capsule 3 TAB PO TID, CAP Lisinopril (Lisinopril) 20 Mg Tablet 20 MG PO HS, TAB Lisinopril (Lisinopril) 10 Mg Tablet 10 MG PO AM, TAB Oxycodone HCl (Oxycodone HCl) 10 Mg Tablet 10 MG PO TID PRN for PAIN, TAB Pantoprazole Sodium (Pantoprazole Sodium) 40 Mg Tablet.dr 40 MG PO AM, TAB Tamsulosin HCl (Flomax) 0.4 Mg Cap.er.24h 0.4 MG PO AM, CAPSULE.DR [Vitamin D3] () 1 TAB PO DAILY Time spent arranging discharge: 31-60 minutes ATTESTATION BY PHYSICIAN I have seen and examined the patient. I reviewed the documentation, medical decision making, and treatment plan as noted by the mid-level provider above. I agree with the findings and plan of care. DARON MACE MD, ELIZABETH NP Nov 22, 2024 10:51
[2024-11-22 11:00] VITALS: BP 124/62; PULSE 64; RESP 20; TEMP 97.9
--- NOTE | 2024-11-22 14:31 | NUR ---
DISCHARGE HOME IVS, ID BANDS AND TELEPAK REMOVED. PATIENT WALKED WITH PT NO CHEST PAIN NOR DISCOMFORT REPORTED OR NOTED. DISCHARGE INSTRUCTIONS GIVEN AND EXPLAINED TO PATIENT AND SPOUSE. PATIENT WHEELED DOWN TO PRIVATE CAR.
== END 2024-11-22 14:08 | disposition home or self-care (01) ==
LOC: DAH 05:59 → DAHIP 06:00 → INTOOBSV 06:00 → DAH 06:00 → OBSVTOIN 06:00 → 2DH 14:10
PROVIDERS: ADMIT Internal Medicine; ATTEND Internal Medicine
DX: I25.119 Atherosclerotic heart disease of native coronary artery with unspecified angina pectoris (principal); I11.0 Hypertensive heart disease with heart failure; I50.40 Unspecified combined systolic (congestive) and diastolic (congestive) heart failure; E78.5 Hyperlipidemia, unspecified; M19.90 Unspecified osteoarthritis, unspecified site; N40.0 Benign prostatic hyperplasia without lower urinary tract symptoms; M81.0 Age-related osteoporosis without current pathological fracture; G89.29 Other chronic pain; Z79.899 Other long term (current) drug therapy; Z95.1 Presence of aortocoronary bypass graft; Z96.642 Presence of left artificial hip joint
CPT/HCPCS: 80048; 83880; 85025 ×2; 85610; 85730; 81001; 36415 ×3; 71045; 93005 ×3; 93455; 96360; 96361; 82550; 84484 ×3; 96372; 83735; 80053; 97161; 97116; 97530 ×2; C1769; C1894; C1760 ×2; Q9965; J3010; J3490 ×4; J7030; J2250 ×4; J1644; Q9967 ×2; A4215; A4223 ×3; A4222; A4221; A4663; A4216; A4606; G0378 ×2; J7500; J2270; 99156; 99157

== ENCOUNTER 2025-01-16 06:27 | Day surgery (SDC) | payer OTHER ==
[2025-01-13 12:56] LABS: BASOPHILS # (AUTO) 0.02 K/uL (0.00-0.20); BASOPHILS % (AUTO) 0.5 % (0.0-5.0); EOSINOPHILS # (AUTO) 0.08 K/uL (0.00-0.70); EOSINOPHILS % (AUTO) 1.9 % (0.0-8.0); HEMATOCRIT 36.3 % (42-54); IMMATURE GRANULOCYTE ABSOLUTE 0.01 K/uL (0-1); LYMPHOCYTES # (AUTO) 0.7 K/uL (1.0-4.8); LYMPHOCYTES % (AUTO) 15.4 % (21.0-51.0); MEAN CORPUSCULAR HEMOGLOBIN 34.9 pg (27.0-33.0); MEAN CORPUSCULAR HGB CONC 32.8 g/dL (32.0-36.0); MEAN CORPUSCULAR VOLUME 106.5 fL (79-99); MONOCYTES # (AUTO) 0.4 K/uL (0.1-1.0); MONOCYTES % (AUTO) 10.2 % (3.0-13.0); NEUTROPHILS % (AUTO) 71.8 % (40.0-77.0); PLATELET COUNT (AUTO) 262 K/uL (130-400); RED BLOOD CELL COUNT(AUTO) 3.41 MIL/uL (4.50-6.20); RED CELL DISTRIBUTION WIDTH 12.7 % (11.0-15.5); WHITE BLOOD COUNT (AUTO) 4.2 K/uL (4.8-10.8)
[2025-01-13 12:58] LABS: APPEARANCE,URINE CLEAR (CLEAR); BILIRUBIN,URINE NEGATIVE (NEGATIVE); COLOR,URINE YELLOW (YELLOW); GLUCOSE, URINE (UA) NEGATIVE (NEGATIVE); KETONES,URINE NEGATIVE (NEGATIVE); LEUKOCYTE ESTERASE ,URINE NEGATIVE Leu/uL (NEGATIVE); NITRATE,URINE NEGATIVE (NEGATIVE); OCCULT BLOOD,URINE NEGATIVE (NEGATIVE); PROTEIN,URINE NEGATIVE (NEGATIVE); UROBILINOGEN,URINE 0.2 mg/dL (0.2-1.0)
--- NOTE | 2025-01-13 13:02 | EKG ---
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 : 1950 Requested By: Bhavesh LIU Order Number: [id number] Reading MD: Elias Dai Measurements Intervals [place] Rate: 68 P: 27 CO: 166 QRS: 2 QRSD: 109 T: 92 QT: 409 QTc: 436 Interpretive Statements Sinus rhythm Incomplete left bundle branch block Nonspecific STT abnormality Low voltage, extremity leads Compared to ECG 11/22/2024 09:16:40 Left bundle-branch block now present Low QRS voltage now present Myocardial infarct finding no longer present T-wave abnormality no longer present Electronically Signed On 01-14-2025 10:13:14 CDT by Elias Dai Please click the below link to view image of tracing.
[2025-01-13 13:05] LABS: CREATININE 1.1 mg/dL (0.5-1.3); POTASSIUM 4.2 mmol/L (3.5-5.1)
[2025-01-13 13:06] LABS: INR 0.97 (0.85-1.15); PROTHROMBIN TIME 10.3 SEC (9.6-11.6)
[2025-01-13 13:07] LABS: PARTIAL THROMBOPLASTIN TIME 25.5 SEC (26.3-35.5)
[2025-01-13 13:09] LABS: ADD UA MICROSCOPIC NO
[2025-01-13 13:24] LABS: B-TYPE NATRIURETIC PEPTIDE 20 pg/mL (0-100)
--- NOTE | 2025-01-13 13:26 | HMCIMG ---
Exam Type: CHEST 1VW Clinical Information: PRE OP Comparison: None Findings: There is cardiomegaly and there is status post median sternotomy. The lungs are clear of infiltrates. Impression: Clear lungs.
[2025-01-13 13:55] VITALS: BP 142/72; PULSE 80; RESP 18; TEMP 98.1
[~2025-01-16] VITALS: Ht 167.6 cm; Wt 78.0 kg
[2025-01-16] VITALS (22 sets, daily range): BP systolic 103–153; BP diastolic 57–110; PULSE 56–73; RESP 11–22; TEMP 96.8–97.3
[~2025-01-16 06:27] MED LIST changes: -AEC81 PO; +ASPI-1197 PO; +RANO500T2 PO; -VITAMIN D3 PO
[2025-01-16] MEDS: 0.9%NACL 1000ML 1,000 ML IV ONE (07:03)
[2025-01-16] MEDS ORDERED: MIDAZOLAM HCL 1 MG/ML 2ML VIAL ONE (07:43)
[2025-01-16] MEDS ORDERED: proPOFol 10 MG/ML 20ML VIAL IV ONE (07:44)
[2025-01-16] MEDS ORDERED: FENTanyl CITRate PF 50 MCG/1 ML 2ML VIAL ONE ×2 (07:44→10:17)
[2025-01-16] MEDS ORDERED: LIDOCAINE HCL 400MG/20ML VIAL ONE (07:49)
[2025-01-16] MEDS ORDERED: IOHEXOL 350 MG/ML 100ML INFUS..BTL IV ONE (07:49)
[2025-01-16] MEDS ORDERED: NITROGLYCERIN 50MG VIAL ONE (07:49)
[2025-01-16] MEDS ORDERED: HEParin-NS 1,000 UNIT/500 ML 1,000 ML IV ONE (07:49)
[2025-01-16] MEDS ORDERED: SODIUM BICARB 50MEQ 50ML VIAL 50 ML ONE (07:50)
[2025-01-16] MEDS ORDERED: niCARDIpine 25MG INJ IV ONE (07:51)
[2025-01-16] MEDS ORDERED: HEParin 10,000 UNIT/10ML (1,000 UNIT/ML) VIAL ONE (08:22)
[2025-01-16] MEDS ORDERED: rocuRONium bROMide 10MG/1ML 5ML VL ONE (08:27)
[2025-01-16] MEDS ORDERED: phenylEPHRINE HCL 10 MG/ML 1ML VIAL IV ONE (08:44)
[2025-01-16] MEDS ORDERED: ePHEDrine SULFate 50 MG/ML AMPULE ONE (09:01)
[2025-01-16] MEDS ORDERED: VASOpressin 20 UNITS/ML 1ML VIAL ONE ×2 (09:20→09:21)
[2025-01-16] MEDS ORDERED: HEParin-NS 1,000 UNIT/500 ML 500 ML IV ONE (10:00)
[2025-01-16] MEDS ORDERED: GLYCOPYRROLATE 0.2 MG/ML 5 ML VIAL ONE (10:16)
[2025-01-16] MEDS ORDERED: ondanSETRON 4MG INJ ONE (10:17)
[2025-01-16] MEDS ORDERED: NEOSTIGMINE METHYLSULFATE 1MG/ML IV ONE (10:17)
[2025-01-16] MEDS ORDERED: 0.9%NACL 1000ML 1,000 ML IV SCH (10:30)
[2025-01-16] MEDS: acetaMINOPHEN 100 ML ONE (10:45)
--- NOTE | 2025-01-16 13:14 | CCATH ---
PROCEDURE NOTE PROCEDURES: * Selective left internal mammary artery angiogram. * Selective left coronary artery angiogram. * Balloon angioplasty of the circumflex. * Stenting of the circumflex. * Balloon angioplasty and stenting of the left main. INDICATIONS: * Known history of coronary artery disease. * Ischemic cardiomyopathy. * Recurrent angina. COMPLICATIONS: None. TOTAL CONTRAST: 110 mL. APPROACH: Left radial approach. DESCRIPTION OF PROCEDURE: Please refer to the recent study performed in November of this year. The patient had patent saphenous vein graft to the PLVB and a patent saphenous vein graft to the acute marginal branch of the right coronary artery with a patent saphenous vein graft to M1 by that study. The procedure was not completed due to the patient's movement and right groin hematoma necessitating this secondary procedure. The right coronary artery and other grafts were not imaged. After appropriate operative consent was signed, the patient was taken to the cardiac catheterization lab. He had requested general anesthesia because of severe lumbosacral spine disease and inability to lie flat. The patient was managed with LMA as per anesthesia. He was stable throughout the procedure. We utilized a standard needle for access of the left radial artery. A 6-Sami Slender sheath was advanced in a retrograde fashion with a modified Seldinger technique. At this point, a Bartorelli catheter was advanced over an indwelling wire. This imaged the left subclavian artery, which was widely patent. The Bartorelli catheter was then engaged in the left internal mammary artery, which was widely patent, supplying mid LAD with mild to moderate luminal irregularities distal to the anastomosis. The LAD was occluded proximal to the anastomosis. The catheter was then withdrawn and then we utilized an XB4 to engage in the left main. This was imaged in multiplane. The left main was heavily calcified and had 80% shelf-like lesion bifurcated into an LAD, circumflex. The LAD was 100% occluded after the first small septal and first small diagonal and the benton LAD was not seen by benton injections. Circumflex marginal had a heavily calcified proximal 80% hazy lesion. It gave rise to bifurcating OM1, which had a vein graft attached anastomose to its superior branch. The ongoing circ had distal OM branches. Given the patient's symptoms and his presentation, at this point, ____ was checked and a 0.014 wire was advanced to position to the distal circumflex circulation. A 3.0 NC balloon was utilized to inflate in the left main and the circumflex. We then advanced a 3.5 x 34 Yann Blackstone drug-eluting stent, which was deployed in the proximal circ and all the way back to the ostium of the left main. This was deployed to nominal pressures. It was then post dilated in the circumflex with a 3.0 NC balloon and in the left main with a 4.0 NC balloon. The final angiographic results were quite good. 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 The left radial line was withdrawn over an indwelling wire and a radial band was applied. At this point, the patient was stable. FINAL IMPRESSION: * Patent RANGEL to the LAD. * Occluded benton LAD proximal to the RANGEL. * Successful PTCA stent of the circumflex and left main with a 3.5 x 34 [place] Blackstone stent post dilated in the circumflex with a 3.0 balloon and in the left main with a 4.0 NC balloon with good angiographic results. PLAN: Continue medical management. TID: [id number] RECEIPT: [id number]
--- NOTE | 2025-01-16 13:35 | NUR ---
VASC BAND: VASC BAND REMOVED WITH NO ACTIVE BLEEDING NOTED. CLEANSED AREA WITH CHLORAPREP FOLLOWED BY APPLYING STERILE 2X2 GAUZE THAN 2X2 TEGADERM. NO REDNESS/SWELLING NOTED TO SURROUNDING AREA.
--- NOTE | 2025-01-16 13:40 | NUR ---
ACTIVITY/URINARY: ASSISTED TO STANDING POSITION WITHOUT COMPLAINING OF DIZZINESS. AMBULATED TO BATHROOM SLOW STEADY GAIT. PT VOIDED QS YELLOW COLOR URINE WITHOUT DIFFICULTY. ASSISTED BACK TO BED.
== END 2025-01-16 15:05 | disposition home or self-care (01) ==
LOC: DAH 06:27
PROVIDERS: ATTEND Internal Medicine Cardiovascular Disease
DX: I25.118 Atherosclerotic heart disease of native coronary artery with other forms of angina pectoris (principal); I25.84 Coronary atherosclerosis due to calcified coronary lesion; I44.7 Left bundle-branch block, unspecified; I25.5 Ischemic cardiomyopathy; I13.0 Hypertensive heart and chronic kidney disease with heart failure and stage 1 through stage 4 chronic kidney disease, or unspecified chronic kidney disease; I50.9 Heart failure, unspecified; N18.9 Chronic kidney disease, unspecified; E78.5 Hyperlipidemia, unspecified; M19.90 Unspecified osteoarthritis, unspecified site; Z95.5 Presence of coronary angioplasty implant and graft; Z96.651 Presence of right artificial knee joint; Z79.899 Other long term (current) drug therapy
CPT/HCPCS: 80048; 83880; 85025; 85610; 85730; 81003; 36415; 71045; 93005; 85347; 93455; C9600; C1769 ×3; C1887 ×3; C1725 ×2; C1874; C1894 ×2; A4649; J3010 ×2; J3490 ×8; J7030; J1644 ×3; J2250; J2704; J2405; J2371; Q9967; A4215; A4222; A6260; A4221; A4663; A4216; A6206; A4606; Q9965 ×2; A4223 ×3; 96360; 96361; J2710